=== PATIENT | female | born 1940 | race Caucasian/White ===

== ENCOUNTER 2017-01-23 12:05 | Emergency (ER) | payer MEDICARE ==
[~2017-01-23] VITALS: Wt 72.6 kg
[~2017-01-23 12:05] MED LIST: 'XANAX0.25 MG PO; ACETAMINOPHEN325 M2 PO; ASPIR-LOW81 MG PO; BENADRYL ALLERG25 M5 PO; CALCIUM 600600 M2 PO; CALCIUM-600600 MG PO; CARDIZEM CD180 MG PO; CARDIZEM CD240 MG PO; CEFTIN500 MG PO; CENTRUM SILVER1 TA1 PO; COLACE100 MG PO; CORDARONE200 MG PO; COUMADIN5 M2 PO; COUMADIN6 M2 PO; DETROL LA4 MG PO; DILTIAZEM HYDR180 M2 PO; DILTIAZEM240 M1 PO; DOXYCYCLINE100 MG PO; ELIQUIS; ELIQUIS5 M1 PO; ENABLEX15 MG PO; Eliquis PO; FISH OIL 1,2001 EAC1 PO; FISH OIL PO; FLOMAX0.4 MG PO; HYDROCODONE BIT1 T11 PO; KEFLEX 500 MG E2 CAP PO; LANOXIN0.125 MG PO; LANOXIN0.25 MG PO; LANOXIN250 MCG PO; LISINOPRIL5 MG PO; LOPRESSOR25 MG PO; LOSARTAN POTASS25 M1 PO; Lopressor25 MG PO; MACROBID100 M1 PO; MELOXICAM15 MG PO; METOPROLOL25 MG PO; MOTRIN600 MG PO; MULTAQ400 MG PO; NATURE'S BLEND F1 MG PO; PACERONE200 MG PO; PAROXETINE20 MG PO; PERCOCET 325 MG1 TA5 PO; PERCOCET 325 MG1 TA7 PO; POTASSIUM99 M4 PO; PYRIDIUM200 MG PO; SYNTHROID25 MCG PO; TOPROL XL50 M1 PO; TYLENOL W/CODEI1 TA7 PO; VESICARE5 MG PO; VITAMIN C500 MG PO; VITAMIN D32000 IU PO; VITAMIN D32000 UNIT PO; VITAMIN E400 I1 PO; VITAMIN E400 UNI2 PO; XARELTO10 MG PO; ZOFRAN ODT4 MG SL
[2017-01-23 13:26] LABS: INTERNATIONAL NORM RATIO 4.8 (2.0-3.5)
[2017-01-23 13:33] VITALS: BP 127/60
== END 2017-01-23 13:46 | disposition home or self-care (01) ==
LOC: ED 12:05
PROVIDERS: Emergency Medicine
DX: S40.022A Contusion of left upper arm, initial encounter (principal); R79.1 Abnormal coagulation profile; I48.2 Chronic atrial fibrillation; I12.9 Hypertensive chronic kidney disease with stage 1 through stage 4 chronic kidney disease, or unspecified chronic kidney disease; N18.3 Chronic kidney disease, stage 3 (moderate); Z95.0 Presence of cardiac pacemaker; Z87.442 Personal history of urinary calculi; Z98.890 Other specified postprocedural states; Z90.710 Acquired absence of both cervix and uterus; Z90.89 Acquired absence of other organs; Z79.01 Long term (current) use of anticoagulants; Z79.899 Other long term (current) drug therapy; W19.XXXA Unspecified fall, initial encounter; Y93.89 Activity, other specified; Y92.129 Unspecified place in nursing home as the place of occurrence of the external cause; Y99.9 Unspecified external cause status

== ENCOUNTER 2017-03-03 00:26 | Inpatient (IN) | payer MEDICARE ==
[2017-03-03] VITALS (7 sets, daily range): BP systolic 100–129; BP diastolic 61–72
[~2017-03-03] VITALS: Ht 162.6 cm; Wt 58.2 kg
--- NOTE | ~2017-03-03 | PR ---
[place], [place] PROGRESS NOTE NAME: SUZIE HERNANDES [facility] #: [id number] UNIT #: [id number] ROOM: 409 DOCTOR: MARIA FERNANDA MIKE MD BIRTHDATE: [birth year] DOS: 03/07/2017 SUBJECTIVE: The patient was seen at her bedside today for followup of her atrial arrhythmias and digoxin toxicity. She is a 76-year-old woman with a history of atrial fibrillation, tachybrady syndrome and a permanent DDD pacemaker. She presented to the hospital after a fall at her correction. She was found to be hypotensive and to have a supratherapeutic digoxin level of 3.22. She was hospitalized and hydrated. Her vital signs stabilized. She remained in an AV sequentially paced rhythm and her digoxin level normalized. The patient is pleasantly confused, but denies any symptoms at this time. Plans are being made for her to return to her extended care facility. PHYSICAL EXAMINATION: VITAL SIGNS: Today her pulse is 70 and regular, blood pressure is 130/76. She is afebrile. She weighs 58.2 kilograms with a body mass index of 22. NECK: Supple. She has no jugular distention. Carotids are full. LUNGS: Respirations are unlabored. Her chest is clear. HEART: Has a regular rhythm with a fourth heart sound. The PMI is not displaced. There are no obvious murmurs. ABDOMEN: Soft and normally active. EXTREMITIES: Showed no edema. There were no palpable cords or tenderness. IMPRESSION: 1. Hospitalization after a fall at her extended care facility. 2. Digoxin toxicity. 3. Dementia. 4. Acute renal failure, resolving. 5. History of conduction system disorder and sick sinus syndrome, treated with a DDD pacemaker. 6. Paroxysmal atrial fibrillation. PLAN: The patient appears to be clinically compensated at this time. The decision has been made that her fall risk places her at a great risk for further problems should she continue anticoagulation therapy. Anticoagulants have therefore been stopped and she is on aspirin only as an antiplatelet agent. Plans are being made for her to return to her extended care facility. At the time of this dictation, her medications are aspirin 81 mg daily, metoprolol succinate 50 mg q. 12 hours, Paxil 20 mg daily, losartan 25 mg daily, folic acid 1 mg daily, diltiazem 180 mg daily, levothyroxine 25 mcg daily, oxybutynin 5 mg q. 12 hours, tramadol 50 mg q.i.d. p.r.n., lorazepam 0.5 mg b.i.d. p.r.n., diphenhydramine 25 mg p.o. daily, pantoprazole 40 mg p.o. daily, temazepam 50 mg at bedtime p.r.n. We will remain available to see her if needed during her hospitalization. For now we will sign off. However, we thank the hospitalist service for asking our advice regarding her care. [place], [place] PROGRESS NOTE NAME: SUZIE HERNANDES [facility] UNIT #: [id number] ROOM: 409 DOCTOR: MARIA FERNANDA MIKE MD BIRTHDATE: [birth year] MARIA FERNANDA MIKE MD CM:PNTRANS [phone] MARIA FERNANDA MIKE MD 03/07/17 1539 interface
--- NOTE | ~2017-03-03 | PR ---
[place], [place] PROGRESS NOTE NAME: SUZIE HERNANDES [facility] #: [id number] UNIT #: [id number] ROOM: 409 DOCTOR: MARIA FERNANDA MIKE MD BIRTHDATE: [birth year] DOS: 03/05/2017 SUBJECTIVE: The patient was seen at her bedside today, 03/05/2017. She is a 76-year-old resident of a intermediate, who presented after falling, with an elevated digoxin level at 3.22. The digoxin level has been monitored and has fallen back to therapeutic ranges. She also did have an acute rise in her creatinine, but this has fallen from an admission value of 1.21 to 0.67. The patient is no longer on the monitor. She tells me that she feels well. She denies lightheadedness or syncope. She denies any chest pain. PHYSICAL EXAMINATION: VITAL SIGNS: Today her pulse is 100 and regular, blood pressure is 115/84. She is afebrile. She weighs 58.2 kg and has a body mass index of 22. NECK: Supple. She has no jugular distention. Carotids are full. LUNGS: Respirations are unlabored. Her chest is clear. HEART: Has a regular rhythm. No murmurs, rubs or gallops are present. ABDOMEN: Soft and normally active. EXTREMITIES: Showed no edema. PLAN: The decision has been made to stop anticoagulants since she remains a fall risk. She is no longer on antiarrhythmic medications either. She will be maintained on metoprolol for rate control and aspirin as an antiplatelet agent. No other cardiac workup is planned at this time. We thank the hospitalist physicians for asking our advice regarding her care. MARIA FERNANDA MIKE MD CM:PNTRANS [phone] MARIA FERNANDA MIKE MD 03/05/[id number] interface
[~2017-03-03 00:26] MED LIST changes: -CORDARONE200 MG PO
[2017-03-03 01:01] LABS: BASO % 0.4 % (0.0-1.0); EOS # 0.2 10*3/uL (0.0-0.4); EOS % 2.6 % (1.0-4.0); HEMATOCRIT 40.6 % (37.0-47.0); HEMOGLOBIN 13.7 g/dl (12.0-16.0); LYMPH # 2.2 10*3/uL (1.3-4.4); MEAN CORPUSCULAR HGB 30.7 pg (27.0-31.0); MEAN CORPUSCULAR HGB CONC 33.7 g/dl (33.0-37.0); MEAN PLATELET VOLUME 9.5 fl (9.6-12.3); MONO # 0.8 10*3/uL (0.1-1.0); MONO % 10.8 % (3.0-9.0); NEUT # 3.8 10*3/uL (2.3-7.9); NEUT % 54.8 % (47.0-73.0); PLATELET COUNT AUTOMATED 195 10*3/uL (130-400); RED BLOOD COUNT 4.46 10*6/uL (4.10-5.10); RED CELL DISTRI WIDTH 15.9 % (0-14.5); WHITE BLOOD COUNT 6.9 10*3/uL (4.8-10.8)
--- NOTE | 2017-03-03 01:03 | NUR ---
PT TO XRAY AT THIS TIME.---SANIYA GRIMALDO RN
[2017-03-03 01:14] LABS: INTERNATIONAL NORM RATIO 1.2 (2.0-3.5)
[2017-03-03 01:17] LABS: CREATININE 1.21 mg/dL (0.55-1.02); POTASSIUM 3.9 mmol/L (3.5-5.1); TOTAL PROTEIN 6.3 gm/dL (6.4-8.2)
[2017-03-03 01:18] LABS: TROPONIN I 0.034 ng/ml (<0.045)
[2017-03-03 01:52] LABS: DIGOXIN 3.22 ng/ml (0.8-2.0)
--- NOTE | 2017-03-03 01:53 | NUR ---
PATIENT HAS CRITICAL DIGOXIN 3.22. DR. MONTAÑO NOTIFIED.
[2017-03-03 01:54] LABS: BILIRUBIN 1+ (NEGATIVE); BLOOD NEGATIVE (NEGATIVE); CLARITY SL CLOUDY (CLEAR); COLOR YELLOW (YELLOW); GLUCOSE NEGATIVE (NEGATIVE); KETONE TRACE (NEGATIVE); LEUKO ESTERASE 1+ (NEGATIVE); NITRITE NEGATIVE (NEGATIVE); SPECIFIC GRAVITY 1.025 (1.005-1.030)
[2017-03-03 02:09] LABS: BACTERIA 2+
[2017-03-03 02:10] LABS: WBC 16-20 wbc/hpf (0-5); YEAST TRACE
[2017-03-03] MEDS ORDERED: ASPIRIN ADULT L81 M1 PO (04:23)
[2017-03-03] MEDS ORDERED: TRAMADOL HCL50 MG PO (04:28)
[2017-03-03] MEDS ORDERED: ATIVAN0.5 MG PO (04:28)
[2017-03-03 04:46] LABS: BASO % 0.6 % (0.0-1.0); EOS # 0.2 10*3/uL (0.0-0.4); EOS % 2.8 % (1.0-4.0); HEMATOCRIT 39.3 % (37.0-47.0); HEMOGLOBIN 13.2 g/dl (12.0-16.0); LYMPH # 2.1 10*3/uL (1.3-4.4); LYMPH % 29.3 % (27.0-41.0); MEAN CELL VOLUME 90.8 fl (81.0-99.0); MEAN CORPUSCULAR HGB 30.5 pg (27.0-31.0); MEAN CORPUSCULAR HGB CONC 33.6 g/dl (33.0-37.0); MEAN PLATELET VOLUME 9.7 fl (9.6-12.3); MONO # 0.8 10*3/uL (0.1-1.0); MONO % 10.6 % (3.0-9.0); NEUT # 4.1 10*3/uL (2.3-7.9); NEUT % 56.3 % (47.0-73.0); PLATELET COUNT AUTOMATED 188 10*3/uL (130-400); RED BLOOD COUNT 4.33 10*6/uL (4.10-5.10); RED CELL DISTRI WIDTH 15.9 % (0-14.5); WHITE BLOOD COUNT 7.2 10*3/uL (4.8-10.8)
[2017-03-03 04:57] LABS: CREATININE 1.09 mg/dL (0.55-1.02); MAGNESIUM 1.7 mg/dL (1.5-2.1); POTASSIUM 3.6 mmol/L (3.5-5.1)
[2017-03-03 05:02] LABS: PHOSPHOROUS 2.7 mg/dL (2.5-4.9)
[2017-03-03 05:08] LABS: THYROID STIM HORMONE (HS) 1.36 uIU/ml (0.358-4.75)
--- NOTE | 2017-03-03 05:35 | NUR ---
POISON CONTROL CALLED TO CHECK DIG LEVEL AND TO MAKE SURE PATIENT IS ON FLUIDS AND MONITOR.
[2017-03-03 06:08] LABS: VITAMIN D, 25-HYDROXY 45.8 ng/mL (30-100)
--- NOTE | 2017-03-03 08:20 | NUR ---
DR CURREI MADE AWARE OF PT'S CRITICAL DIG LEVEL OF 3.21
--- NOTE | 2017-03-03 10:44 | NUR ---
PT ASSISTED UP IN TO RECLINER CHAIR. PT SHUFFLES HER FEET WHEN WALKING.
--- NOTE | 2017-03-03 10:58 | NUR ---
PHYSICAL THERAPY PAtient eating breakfast at this time. Thank you for this referral. Cleopatra Quinones,PT
--- NOTE | 2017-03-03 11:45 | NUR ---
PHYSICAL THERAPY Patient evaluated in ICCU, full evaluation to follow. Continue with PT as per plan of care with fall, confused and acute debility precautions. MAy require SNF prior to return to (A) living to increased safety and functional mobility. PAtient is moderate complexity via chart review, tests and evalaution: 33424. Thank you for this referral. Cleopatra ji,PT
--- NOTE | 2017-03-03 14:42 | NUR ---
PT MEDICATED WITH ATIVAN FOR ANXIETY AND ULTRAM FOR GENERALIZED BODY ACHES AFTER BEING ASSISTED BACK IN TO BED FROM RECLINER CHAIR.
--- NOTE | 2017-03-03 15:38 | NUR ---
PT RESTING WITH EYES CLOSED SINCE BEING MEDICATED WITH ATIVAN AND ULTRAM FOR ANXIETY AND BODY ACHES.
--- NOTE | 2017-03-03 17:06 | NUR ---
DR SYED IN TO SEE PT.
--- NOTE | 2017-03-03 20:44 | NUR ---
24 HR chart check completed.
--- NOTE | 2017-03-03 21:08 | NUR ---
PRN RESTORIL GIVEN FOR INSOMNIA. WILL MONITOR FOR EFFECTIVENESS.
--- NOTE | 2017-03-03 22:00 | NUR ---
PATIENT ASLEEP. RESTORIL EFFECTIVE.
[2017-03-04] VITALS: BP 120/80
[2017-03-04 04:24] VITALS: BP 158/87
--- NOTE | 2017-03-04 05:29 | NUR ---
ULTRAM GIVEN FOR C/O PAIN. UNABLE TO RATE PAIN ON PAIN SCALE. RUBBING RIGHT HIP. GRIMACING WITH TURNING. MEDICATED WITH PRN ATIVAN FOR ANIXETY/ RESTLESSNESS. PATIENT HAS MADE NUMEROUS ATTEMPTS TO GET OUT OF BED. PULLING AT GOWN, MONITOR LEADS AND IV SITE. WILL MONITOR FOR EFFECTIVENESS.
--- NOTE | 2017-03-04 06:29 | NUR ---
PATIENT ASLEEP. NO SIGNS OF ANXIETY OR PAIN. ULTRAM AND ATIVAN EFFECTIVE.
[2017-03-04 07:07] LABS: HEPATITIS B SURFACE AG Negative (Negative); HEPATITIS C VIRUS ANTIBODY <0.1 s/co (0.0-0.9)
[2017-03-04 07:13] LABS: BASO % 0.4 % (0.0-1.0); EOS # 0.2 10*3/uL (0.0-0.4); EOS % 2.4 % (1.0-4.0); HEMATOCRIT 35.6 % (37.0-47.0); HEMOGLOBIN 11.8 g/dl (12.0-16.0); LYMPH # 1.4 10*3/uL (1.3-4.4); LYMPH % 18.5 % (27.0-41.0); MEAN CELL VOLUME 90.6 fl (81.0-99.0); MEAN CORPUSCULAR HGB CONC 33.1 g/dl (33.0-37.0); MEAN PLATELET VOLUME 10.2 fl (9.6-12.3); MONO # 0.8 10*3/uL (0.1-1.0); MONO % 10.9 % (3.0-9.0); NEUT # 5.1 10*3/uL (2.3-7.9); NEUT % 67.4 % (47.0-73.0); PLATELET COUNT AUTOMATED 179 10*3/uL (130-400); RED BLOOD COUNT 3.93 10*6/uL (4.10-5.10); RED CELL DISTRI WIDTH 15.7 % (0-14.5); WHITE BLOOD COUNT 7.5 10*3/uL (4.8-10.8)
[2017-03-04] MEDS ORDERED: MEMANTINE HCL10 MG PO (07:22)
[2017-03-04] MEDS ORDERED: MEGACE 40400 MG/10 PO (07:33)
--- NOTE | 2017-03-04 07:48 | NUR ---
Shift chart check completed.24 HR chart check completed.
[2017-03-04 07:51] LABS: ALBUMIN 2.5 gm/dl (3.1-4.5); ALKALINE PHOSPHATASE 77 U/L (45-117); BUN 12 mg/dl (7-24); CHLORIDE 111 mmol/L (98-107); CREATININE 0.76 mg/dL (0.55-1.02); POTASSIUM 3.6 mmol/L (3.5-5.1); SGOT/AST 80 IU/L (3-35); SGPT/ALT 111 U/L (12-78); SODIUM 143 mmol/L (136-145); TOTAL PROTEIN 5.4 gm/dL (6.4-8.2)
--- NOTE | 2017-03-04 08:00 | NUR ---
BUSINESS CASE ANALYST VS. SLEEPING. COMES FROM [facility]. MAY NEEDS SNF PLACEMENT. WILL FOLLOW.
--- NOTE | 2017-03-04 09:35 | NUR ---
PHYSICAL THERAPY Mago seen for her physical therapy session and just would not arouse, nursing ask just not to see her right now. LORENA PIERRE FACILITIES MAINTENANCE MANAGER.
--- NOTE | 2017-03-04 11:51 | NUR ---
PT AWAKE AND UP TO BSC TO VOID 300ML DRK AGUSTIN, FOUL SMELLING URINE. SINCE BEING AWAKE SHE IS IN CONSTANT MOTION. LINENS OFF, LINENS ON. ATTEMPTED TO GIVE HER WASHCLOTHS TO FOLD BUT SHE DOESN'T SEEM TO KNOW WHAT TO DO WITH THEM. DR SYED HAS VISITED. DR BELL ET AL IN TO VISIT.
[2017-03-04 12:00] VITALS: BP 114/60
--- NOTE | 2017-03-04 12:07 | NUR ---
Patient is from [place]. Called and spoke with nurse Ramirez. patient resides in their locked memory unit. They would like to see if patient clears up from digoxin toxicity and UTI and would also like physical therapy eval/notes prior to returning. If patient clears up but will need continued therapy, patient can receive skilled therapy there with a prescription stated patient needs PT 5 days per week. Will follow
--- NOTE | 2017-03-04 12:18 | NUR ---
DR SYED HAS VISITED. MEDS WERE REVIEWED WITH HIM.
--- NOTE | 2017-03-04 13:16 | NUR ---
PHYSICAL THERAPY Mago seen this PM and was supine talking. With much verbal cueing for everything. Transfer supine/sit MOD A X 1, sitting balance once up MIN A X `1 X 6 min. Sit/stand and standing balance X 3, with MOD A X 1, verbal cues for Pt's standingbalance, head up and stand. We did side step X 2 right and left with sitting rest as needed. Pt back supine MOD A X 1. LORENA PIERRE GORE STITCHER.
--- NOTE | 2017-03-04 14:19 | NUR ---
PHYSICAL THERAPY CO-SIGN I approve of the Phyical Therapy notes written above. HAILEY ALEMAN PT
--- NOTE | 2017-03-04 14:52 | NUR ---
WE ATTEMPTED TO FEED PT HER LUNCH EARLIER. SHE JUST TOOK A FEW BITES OF EACH ITEM. CURRENTLY SHE IS SLEEPING EASILY. NO DYSRHYTHMIAS OR RESPIRATORY DISTRESS.
--- NOTE | 2017-03-04 15:51 | NUR ---
ULTRAM FOR RT HIP PAIN.
[2017-03-04 16:00] VITALS: BP 122/78
--- NOTE | 2017-03-04 16:08 | NUR ---
UP IN RECLINER CHAIR AT THE BEDSIDE. SHE IS CONTINUALLY PULLING HER BLANKET OFF AND PUTTING HER BLANKET ON, PULLING HER SOCKS UP AND PUSHING THEM DOWN. SHE GIGGLES WHEN QUESTIONED. DOES NOT FOLLOW COMMANDS COMPLETELY.
--- NOTE | 2017-03-04 16:48 | NUR ---
FOOD PREPARED AND PT IN CHAIR. DOESN'T HOLD SPOON WELL, PUTS HER HANDS IN THE SPAGHETTI AND GIGGLES.
--- NOTE | 2017-03-04 17:35 | NUR ---
SEEMS COMFORTABLE SINCE THE ULTRAM. VERY POOR INTAKE. I HAVE ATTEMPTED TO FEED HER BUT SHE RESISTS ME.
--- NOTE | 2017-03-04 19:03 | NUR ---
24 HR chart check completed.
[2017-03-04 20:00] VITALS: BP 122/74
--- NOTE | 2017-03-04 21:05 | NUR ---
RESTORIL GIVEN FOR INSOMNIA.
--- NOTE | 2017-03-04 22:00 | NUR ---
PATIENT ASLEEP. RESTORIL EFFECTIVE.
[2017-03-05] VITALS: BP 127/70
[2017-03-05 04:00] VITALS: BP 127/70
[2017-03-05 05:57] LABS: BASO % 0.6 % (0.0-1.0); EOS # 0.2 10*3/uL (0.0-0.4); EOS % 2.8 % (1.0-4.0); HEMATOCRIT 34.9 % (37.0-47.0); HEMOGLOBIN 11.6 g/dl (12.0-16.0); LYMPH # 1.5 10*3/uL (1.3-4.4); LYMPH % 22.6 % (27.0-41.0); MEAN CELL VOLUME 90.9 fl (81.0-99.0); MEAN CORPUSCULAR HGB 30.2 pg (27.0-31.0); MEAN CORPUSCULAR HGB CONC 33.2 g/dl (33.0-37.0); MEAN PLATELET VOLUME 10.1 fl (9.6-12.3); MONO # 0.7 10*3/uL (0.1-1.0); MONO % 10.6 % (3.0-9.0); NEUT # 4.1 10*3/uL (2.3-7.9); NEUT % 63.2 % (47.0-73.0); PLATELET COUNT AUTOMATED 185 10*3/uL (130-400); RED BLOOD COUNT 3.84 10*6/uL (4.10-5.10); RED CELL DISTRI WIDTH 15.8 % (0-14.5); WHITE BLOOD COUNT 6.5 10*3/uL (4.8-10.8)
[2017-03-05 06:32] LABS: ALBUMIN 2.5 gm/dl (3.1-4.5); ALKALINE PHOSPHATASE 82 U/L (45-117); BUN 9 mg/dl (7-24); CHLORIDE 113 mmol/L (98-107); CREATININE 0.67 mg/dL (0.55-1.02); POTASSIUM 3.6 mmol/L (3.5-5.1); SGOT/AST 89 IU/L (3-35); SGPT/ALT 120 U/L (12-78); SODIUM 144 mmol/L (136-145); TOTAL PROTEIN 5.4 gm/dL (6.4-8.2)
[2017-03-05 08:00] VITALS: BP 120/63
--- NOTE | 2017-03-05 08:00 | NUR ---
Awake and alert, disoriented to place and time. conversing abt. playing cards stating she wasn't allowed to play because she didn't have any jewlery on. AM glu 64 OJ w/ 2 sugars given and breakfast ordered. Assisted up to BSC x 2 this AM w/ 2 assists. for adequate amt enrike urine each time. Unsteady to stand. shuffling gait and backward motion.
--- NOTE | 2017-03-05 10:14 | NUR ---
Full feed for breakfast. Requested coffee be left at bedside w/i 15 min. coffee spilled in bed. cool at the time no reddness of skin noted. Full linen change and up to chair. Unsteady to stand.
--- NOTE | 2017-03-05 11:06 | NUR ---
IV to RAN reddened dc'd and re-started to RA. Dr. Sears in to evaulate Orders recieved. Flores Torres in to visit. Update given
--- NOTE | 2017-03-05 11:45 | NUR ---
Per attending staff. Removed body alarm and up in room . Inc large amt urine, assisted back into bed .
[2017-03-05 12:00] VITALS: BP 102/66
--- NOTE | 2017-03-05 14:27 | NUR ---
Transferred to [facility] via w/c.
[2017-03-05 16:00] VITALS: BP 115/84
[2017-03-05 20:00] VITALS: BP 130/87
[2017-03-06] VITALS: BP 157/83
[2017-03-06 06:05] LABS: BASO % 0.4 % (0.0-1.0); EOS # 0.2 10*3/uL (0.0-0.4); EOS % 2.9 % (1.0-4.0); LYMPH # 1.6 10*3/uL (1.3-4.4); LYMPH % 22.4 % (27.0-41.0); MEAN CELL VOLUME 91.1 fl (81.0-99.0); MEAN CORPUSCULAR HGB 30.4 pg (27.0-31.0); MEAN CORPUSCULAR HGB CONC 33.3 g/dl (33.0-37.0); MEAN PLATELET VOLUME 10.6 fl (9.6-12.3); MONO # 0.8 10*3/uL (0.1-1.0); MONO % 11.3 % (3.0-9.0); NEUT # 4.6 10*3/uL (2.3-7.9); NEUT % 62.6 % (47.0-73.0); PLATELET COUNT AUTOMATED 210 10*3/uL (130-400); RED BLOOD COUNT 3.95 10*6/uL (4.10-5.10); RED CELL DISTRI WIDTH 15.7 % (0-14.5); WHITE BLOOD COUNT 7.3 10*3/uL (4.8-10.8)
[2017-03-06 06:37] LABS: CHLORIDE 110 mmol/L (98-107); POTASSIUM 4.2 mmol/L (3.5-5.1); SODIUM 144 mmol/L (136-145)
[2017-03-06 06:41] LABS: BUN 8 mg/dl (7-24); CREATININE 0.71 mg/dL (0.55-1.02)
[2017-03-06 12:00] VITALS: BP 154/73
--- NOTE | 2017-03-06 15:00 | NUR ---
PATIENT ATTEMPTING TO GET OUT OF BED. PLEASANTLY CONFUSED AT THIS TIME WITH BODY ALARM INTACT. MOVED TO GARY CHAIR AT THIS TIME.
[2017-03-06 16:00] VITALS: BP 126/64
[2017-03-06 20:00] VITALS: BP 129/66
--- NOTE | 2017-03-06 22:44 | NUR ---
PT GIVEN ATIVAN 0.5 MG TAB PO FOR S/S OF ANXIETY. WILL MONITOR FOR EFFECTIVENESS. CALL LIGHT IN REACH.
--- NOTE | 2017-03-06 23:44 | NUR ---
ATIVAN EFFECTIVE. PT NOW RESTING PEACEFULLY IN BED, CALL LIGHT IN REACH.
[2017-03-07] VITALS: BP 127/75
--- NOTE | 2017-03-07 04:00 | NUR ---
PT RESTING PEACEFULLY IN BED AT THIS TIME. NO S/S OF DISTRESS. RESPIRATIONS EASY AND UNLABORED, CALL LIGHT IN REACH.
--- NOTE | 2017-03-07 04:18 | NUR ---
24 HR chart check completed.
[2017-03-07 08:00] VITALS: BP 130/76
--- NOTE | 2017-03-07 09:35 | NUR ---
PHYSICAL THERAPY Mago was seen this AM 1:1 for her therapy session and doing much better then last tuesday treatment. Pt needing much verbal cueing for everything, and is confused. Transfer supine/sit, MOD A X 1, sitting balance once up CG X 1, X 4 min, no LOB. Followed by sit/stand and standing balance X 3, with MOD SADDLE STITCHING MACHINE OPERATOR X 1, and sitting rest after each stand. Then gait 45' X 1, MOD SADDLE STITCHING MACHINE OPERATOR X 1, and needing cueing for balance, gait and turns or she would get lost. Pt back supine in bed call light and bed alarm on. LORENA PIERRE COMPENSATION ANALYST.
[2017-03-07 11:59] VITALS: BP 132/68
--- NOTE | 2017-03-07 12:37 | NUR ---
Called [facility] after faxing updates to make sure patient is ok to return. Nurses are unavailable at this time, left message to return call
--- NOTE | 2017-03-07 13:39 | NUR ---
Spoke with Ashley, the nurse at [facility] who reviewed patients clincals. She stated patient is ok to return, but will need a prescription written for physical therapy 5 days a week. Will notify Mayra, nurse director of hospitalists.
[2017-03-07] MEDS ORDERED: TOPROL XL50 M1 PO (13:56)
[2017-03-07] MEDS ORDERED: TRAMADOL HCL50 MG PO (13:56)
[2017-03-07] MEDS ORDERED: ATIVAN0.5 MG PO (13:56)
--- NOTE | 2017-03-07 15:06 | NUR ---
Patient is being discharged back to [facility] unit. Transportation scheduled for 3:30 with [facility]. [facility] and nursing notified.
--- NOTE | 2017-03-07 15:21 | NUR ---
Patient is not being accepted back by [facility] at this time. Nurse at [facility], Ashley, stated on the nurse to nurse it was reported that the patient doesn't know what to do with her food and forgets or has trouble eating. Also stated report said patient is having difficulty transfering to the [facility]. I questioned Ashley in the fact that this patient is currently in their [facility] unit and according to the physical therapy note she has walked 45 feet today. Ashley stated she feels at this time the patient should go to a skilled facility for short term rehab prior to returning. Called and cancelled ambulance. notified [facility] to cancel discharge. Will follow up tomorrow on skilled facility rehab
--- NOTE | 2017-03-07 15:21 | NUR ---
[facility]
[2017-03-07 16:00] VITALS: BP 111/55
--- NOTE | 2017-03-07 16:20 | NUR ---
Occupational Therapy evaluation completed this date on 4 with full eval to follow. Precautions include fall risk, moderate complexity level 22661, poor memory, orientation and patient requires simple one step repetitive commands in ADLs. She is able to feed self w/ moderate assist w/ above commands. Recommend OT per POC and return to familiar memory care unit or SNF to return to PLOF. Thank you for this referral. Nara Pastrana OTR/L
[2017-03-07 20:00] VITALS: BP 111/55; BP 130/72
--- NOTE | 2017-03-07 20:15 | NUR ---
PT. RESTING IN BED. HEP LOCK OUT PER RN. LUNGS DIMINISHED BUT CLEAR BILAT, PULSE OX 96% ON RA. PT. REMAINS CONFUSED AND DISORIENTED. ABDOMEN SOFT, NONDSITENDED AND NORMO. NO PERIPHERAL EDEMA NOTED. PT. HAS BODY ALARM ON WHILE UP IN CHAIR. HAIM HAYES RN
--- NOTE | 2017-03-07 22:02 | NUR ---
PT. GIVEN ATIVAN AT 2126 FOR RESTLESSNESS.
[2017-03-08] VITALS: BP 102/57
--- NOTE | 2017-03-08 00:16 | NUR ---
PT. SLEEPING, ATIVAN GIVEN ORDERED AT 2126 EFFECTIVE.
[2017-03-08 08:00] VITALS: BP 124/68
--- NOTE | 2017-03-08 09:21 | NUR ---
PHYSICAL THERAPY Mago was seen this AM 1:1 for her therapy session and improving with her gait, balance and bilateral LE strength. Transfer supine/sit MOD A X 1, sitting balance once up supervision X 1, X 5 min with no LOB. Sit/stand and standing balance MOD A X 1, X 3. Then gait working on gait balance, turns, stop/start gait with much cueing 70' X 2, wit one sitting rest. Pt up in her bedside chair, body alarm on tray in front, pt is confused. LORENA PIERRE TEXTILE MACHINE OPERATOR.
[2017-03-08 09:40] VITALS: BP 124/68
--- NOTE | 2017-03-08 10:14 | NUR ---
PATIENT SEEN 1:1 OT THIS DATE 37 MINUTES. PATIENT IDENTIFIED BY NAME AND DATE OF . PATIENT COMPLETED FEEDING CGA AFTER SHEN AND VERBAL/TACTILE INSTRUCTION REQUIRED THIS DATE. PATIENT SEATED IN RECLINER WITH TRAY POSITIONED FOR INCREASE POSTURE AND INDEPENDENCE. PATIENT REQUIRED VERBAL INSTRUCTION TO INITITATE FEEDING AND PRESENTED WITH TREMORS RIGHT HAND AND LOOSE MAILROOM PERSONNEL OF UTENSIL WITH TACTILE CUES REQUIRED INCREASE GRASP/POSITIONING OF UTENSIL. PATIENT WOULD BENEFIT FROM BUILT UP HANDLE FOR INCREASE EASE GRASP. PATIENT DEMONSTRATED GOOD INITIATION REACHING FOR DRINKS WITH NO SPILLS NOTED. PATIENT REQUIRED INCREASE TIME TO COMPLETE AND VERBAL INSTRUCITON MAINTAIN ATTENTION TO TASK. VICENTA LOWERY
[2017-03-08 11:24] VITALS: BP 90/46
--- NOTE | 2017-03-08 11:24 | NUR ---
NOTIFIED (ON FLOOR) THAT PATIENT'S BP WAS LOW 90/46. ORDER OBTAINED TO RECHECK IN 1 HOUR.
[2017-03-08 12:00] VITALS: BP 86/50
[2017-03-08 12:23] VITALS: BP 100/50
--- NOTE | 2017-03-08 14:54 | NUR ---
Discharge instructions reviewed with patient/family. Patient receptive and verbalizes understanding. Follow-up care arranged. Written instructions given to patient/family. PATIENT PICKED UP BY [facility] AND TAKEN TO [facility]. REPORT GIVEN TO FAMILY. MANGO THEODORE
--- NOTE | 2017-03-08 15:58 | NUR ---
PHYSICAL THERAPY CO-SIGN I approve of the Phyical Therapy notes written above. HAILEY ALEMAN PT
--- NOTE | 2017-03-09 07:37 | NUR ---
OCCUPATIONAL THERAPY CO-SIGN I approve of the Occupational Therapy notes written above. MARTHA BARNES OTR/Louie
== END 2017-03-08 14:54 | disposition home or self-care (01) | DRG 917 ==
LOC: ED 00:26 → EDHOLD 02:42 → ICCU 02:42 → 4E 03-05 13:39
PROVIDERS: Internal Medicine; Student in an Organized Health Care Education/Training Program; ADMIT Internal Medicine
DX: T46.0X1A Poisoning by cardiac-stimulant glycosides and drugs of similar action, accidental (unintentional), initial encounter (principal); G93.41 Metabolic encephalopathy; N17.0 Acute kidney failure with tubular necrosis; E43 Unspecified severe protein-calorie malnutrition; I95.9 Hypotension, unspecified; G30.9 Alzheimer's disease, unspecified; I48.0 Paroxysmal atrial fibrillation; I49.5 Sick sinus syndrome; N18.3 Chronic kidney disease, stage 3 (moderate); F02.80 Dementia in other diseases classified elsewhere, unspecified severity, without behavioral disturbance, psychotic disturbance, mood disturbance, and anxiety; N39.0 Urinary tract infection, site not specified; R78.89 Finding of other specified substances, not normally found in blood; R74.0 Nonspecific elevation of levels of transaminase and lactic acid dehydrogenase [LDH]; S01.01XA Laceration without foreign body of scalp, initial encounter; M43.12 Spondylolisthesis, cervical region; I12.9 Hypertensive chronic kidney disease with stage 1 through stage 4 chronic kidney disease, or unspecified chronic kidney disease; F41.1 Generalized anxiety disorder; M85.89 Other specified disorders of bone density and structure, multiple sites; W18.39XA Other fall on same level, initial encounter; R53.81 Other malaise; Z51.5 Encounter for palliative care; Z66 Do not resuscitate; Z87.442 Personal history of urinary calculi; Z95.0 Presence of cardiac pacemaker; Z98.1 Arthrodesis status; Z90.710 Acquired absence of both cervix and uterus; Z90.89 Acquired absence of other organs; Z81.1 Family history of alcohol abuse and dependence; Z83.6 Family history of other diseases of the respiratory system; Z82.49 Family history of ischemic heart disease and other diseases of the circulatory system; Z88.8 Allergy status to other drugs, medicaments and biological substances; Z91.048 Other nonmedicinal substance allergy status; Z79.899 Other long term (current) drug therapy; Z79.82 Long term (current) use of aspirin; Y92.89 Other specified places as the place of occurrence of the external cause; Y93.89 Activity, other specified; Y99.8 Other external cause status; Z68.22 Body mass index [BMI] 22.0-22.9, adult

== ENCOUNTER 2017-03-29 09:19 | Emergency (ER) | payer MEDICARE ==
[~2017-03-29 09:19] MED LIST changes: +ASPIRIN ADULT L81 M1 PO; +ATIVAN0.5 MG PO; +MEGACE 40400 MG/10 PO; +MEMANTINE HCL10 MG PO; +TRAMADOL HCL50 MG PO
[2017-03-29 09:41] LABS: BASO % 0.4 % (0.0-1.0); EOS # 0.3 10*3/uL (0.0-0.4); EOS % 3.6 % (1.0-4.0); HEMATOCRIT 39.3 % (37.0-47.0); HEMOGLOBIN 13.2 g/dl (12.0-16.0); LYMPH # 2.2 10*3/uL (1.3-4.4); LYMPH % 28.8 % (27.0-41.0); MEAN CELL VOLUME 90.1 fl (81.0-99.0); MEAN CORPUSCULAR HGB 30.3 pg (27.0-31.0); MEAN CORPUSCULAR HGB CONC 33.6 g/dl (33.0-37.0); MEAN PLATELET VOLUME 9.6 fl (9.6-12.3); MONO # 0.8 10*3/uL (0.1-1.0); NEUT # 4.3 10*3/uL (2.3-7.9); NEUT % 56.8 % (47.0-73.0); PLATELET COUNT AUTOMATED 236 10*3/uL (130-400); RED BLOOD COUNT 4.36 10*6/uL (4.10-5.10); WHITE BLOOD COUNT 7.6 10*3/uL (4.8-10.8)
[2017-03-29 09:47] LABS: BILIRUBIN NEGATIVE (NEGATIVE); BLOOD NEGATIVE (NEGATIVE); CLARITY CLEAR (CLEAR); COLOR YELLOW (YELLOW); GLUCOSE NEGATIVE (NEGATIVE); KETONE NEGATIVE (NEGATIVE); LEUKO ESTERASE NEGATIVE (NEGATIVE); NITRITE NEGATIVE (NEGATIVE); PH 5.5 (5.0-9.0); SPECIFIC GRAVITY <= 1.005 (1.005-1.030); UROBILINOGEN 0.2 E.U./dl (0.2-1.0)
[2017-03-29 09:50] LABS: ACT PARTIAL THROMBO TIME 24.3 SECONDS (20.8-31.5); INTERNATIONAL NORM RATIO 1.2 (2.0-3.5)
[2017-03-29 09:55] LABS: URINE AMPHETAMINES < 1000 (1000ng/ml); URINE BARBITURATES < 200 (200ng/ml); URINE BENZODIAZEPINES < 200 (200ng/ml); URINE CANNABINOIDS (THC) < 50 (50ng/ml); URINE COCAINE < 300 (300ng/ml); URINE METHADONE < 300 (300ng/ml); URINE OPIATES < 300 (300ng/ml); URINE PHENCYCLIDINE < 25 (25ng/ml)
[2017-03-29 09:57] LABS: ALBUMIN 2.8 gm/dl (3.1-4.5); ALKALINE PHOSPHATASE 83 U/L (45-117); BUN 17 mg/dl (7-24); CHLORIDE 114 mmol/L (98-107); CREATININE 1.23 mg/dL (0.55-1.02); POTASSIUM 3.7 mmol/L (3.5-5.1); SGOT/AST 64 IU/L (3-35); SGPT/ALT 87 U/L (12-78); SODIUM 145 mmol/L (136-145); TOTAL PROTEIN 6.2 gm/dL (6.4-8.2)
[2017-03-29 09:58] LABS: TROPONIN I 0.019 ng/ml (<0.045)
[2017-03-29 09:58] LABS: EPITHELIAL CELLS 0-2; RBC 0-2 rbc/hpf (0-2)
[2017-03-29 10:06] LABS: ACETAMINOPHEN (TYLENOL) < 2.0 ug/ml (10-30); ETHYL ALCOHOL < 3.0 mg/dl (<3)
[2017-03-29 10:07] VITALS: BP 130/72
[2017-03-29] MEDS ORDERED: MEGACE 40400 MG/10 PO (13:16)
== END 2017-03-29 13:49 | disposition admitted as inpatient to this hospital (09) ==
LOC: ED 09:19
PROVIDERS: Student in an Organized Health Care Education/Training Program
DX: R41.82 Altered mental status, unspecified (principal); T43.025A Adverse effect of tetracyclic antidepressants, initial encounter; F03.90 Unspecified dementia, unspecified severity, without behavioral disturbance, psychotic disturbance, mood disturbance, and anxiety; I12.9 Hypertensive chronic kidney disease with stage 1 through stage 4 chronic kidney disease, or unspecified chronic kidney disease; N18.3 Chronic kidney disease, stage 3 (moderate); I48.2 Chronic atrial fibrillation; Z90.89 Acquired absence of other organs; Z87.442 Personal history of urinary calculi; Z98.890 Other specified postprocedural states; Z90.710 Acquired absence of both cervix and uterus; Z79.899 Other long term (current) drug therapy; Z79.82 Long term (current) use of aspirin; Z88.6 Allergy status to analgesic agent; Z88.8 Allergy status to other drugs, medicaments and biological substances; Y92.9 Unspecified place or not applicable

== ENCOUNTER 2017-03-29 13:03 | Inpatient (IN) | payer MEDICARE ==
[~2017-03-29] VITALS: Ht 165.1 cm; Wt 63.5 kg
--- NOTE | ~2017-03-29 | PR ---
[place], [place] PROGRESS NOTE NAME: [id number] #: [id number] ROOM: 315 DOCTOR: RICK CHAN MD BIRTHDATE: [birth year] DOS: 04/04/2017 CHIEF COMPLAINT: "Oh good morning, thank you for visiting." SUMMARY OF THE VISIT: The patient was interviewed as she sat in a Radhika chair reading a magazine. She was awaiting her breakfast. I later did bring her breakfast to her and she thanked me profusely for assisting her. She was bright and pleasant and offered no complaints. She does remain grossly confused, stating that she spent the weekend with her family and that she was happy to do so. Nurses report that she remains in general pleasantly confused. She is tolerating the current psychotropic regimen well. MENTAL STATUS: She is alert and oriented to person, uncertain to place, not time. Mood does seem to be fairly euthymic. Affect appropriate. There are no symptoms of faisal or hypomania. There are no overt auditory or visual hallucinations. No delusions, no paranoia. Short term memory is exceedingly poor. PLAN: I will increase her Namenda from 10 mg a day to 15 mg a day, ultimately targeting a dose of 20 mg a day to maximize potential benefits, maintain Exelon patch at 13.3, maintain Remeron at 22.5. We will renew Ativan in case she requires p.r.n. intervention. Engage in individual and seymour milieu activity, returning to [facility] when psychiatrically stable. RICK CHAN MD CM:PNTRANS [phone] RICK CHAN MD 04/04/17 0801 interface
--- NOTE | ~2017-03-29 | PR ---
[place], [place] PROGRESS NOTE NAME: SUZIE HERNANDES [facility] #: [id number] UNIT #: [id number] ROOM: 315 DOCTOR: Sherin SHIN,JONATHAN BIRTHDATE: [birth year] DOS: 04/03/2017 SUBJECTIVE: The patient seen and spoke with the staff. Per staff, the patient is doing well. Medication compliant. No behavioral problems or issues. She is pleasantly confused. The patient was in the day area. She was actually doing crafts. When asked what she is doing, she was not able to answer what she is doing. She reports good sleep and appetite. She was not in any acute distress. She denied any side effect from the medication also. MENTAL STATUS EXAMINATION: Pleasant, cooperative. Described her mood as "okay." Affect, mood congruent. Thought process is confabulation. She denied auditory or visual hallucination. No delusion or paranoia noted. She denied suicidal ideation, intent or plan. She also denied homicidal ideation, intent or plan. ASSESSMENT: 1. Cognitive disorder, not otherwise specified. 2. 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 PLAN: 1. Continue current medications and care. 2. Continued redirection. 3. Final medication management and discharge planning by the regular team. JONATHAN SHIN MD CM:MICHELL 30 27 Sherin SHIN 04/03/172229 interface
--- NOTE | ~2017-03-29 | PR ---
[place], [place] PROGRESS NOTE [id number] #: [id number] ROOM: 315 DOCTOR: RICK CHAN MD BIRTHDATE: [birth year] DOS: 04/01/2017 CHIEF COMPLAINT: "Oh honey. Thank you for visiting." SUMMARY OF THE VISIT: The patient was interviewed in the dining area where she sat eating her breakfast. She had most of her breakfast tray eaten. Nurses report to me that her appetite has been dramatically improved since she has been here and she is eating 80-100% of every meal. On examination this morning, she was bright and pleasant and very conversant. She smiled readily and offered no complaints. She remains confused, however, and disoriented, but pleasantly so. MENTAL STATUS: She is alert and oriented to person, it is doubtful place and certainly not time. Mood does seem to have trended significantly towards euthymia and affect is much more appropriate. There is no symptom suggestive of hypomania or faisal. Likewise, there are no auditory or visual hallucinations. No delusions are present. No paranoia is present. Short term memory is exceedingly poor, otherwise she is intact. PLAN: I will go ahead and maximize the dose of the Exelon patch from 9.5-13.3 mg daily. Maintain the current dose of Namenda, but plan to increase this from its 10 mg a day dose to 15 and ultimately 20 mg a day. We will continue to engage in individual and seymour milieu activity with the plan to return back to [facility] when psychiatrically stable. RICK CHAN MD CM:PNTRANS 9 3 RICK CHAN MD 04/01/17814 interface
--- NOTE | ~2017-03-29 | PR ---
[place], [place] PROGRESS NOTE NAME: SUZIE HERNANDES LOCATED WITHIN [facility] #: [id number] UNIT #: [id number] ROOM: 315 DOCTOR: Sherin SHIN,JONATHAN BIRTHDATE: [birth year] DOS: 04/02/2017 SUBJECTIVE: The patient seen and spoke with the staff. Per staff, the patient is doing well. No behavioral problems or issues. Medication compliant. She is sleeping well. Her appetite is good. Easily redirectable. The patient was pleasant and cooperative. She was in the day area. She reports doing "good." She denied depressed mood or hopelessness. Denied any other neurologic signs, symptoms or depression. She said that she is happy that she is getting the help that she needed and for being in the hospital. She did not express any problems or concerns. MENTAL STATUS EXAMINATION: Pleasant and cooperative. Describes her mood as "good." Affect, mood congruent. Thought process goal directed. No flight of ideas or loosening of association. She denied auditory or visual hallucination. No delusion or paranoia noted. She denied any suicidal ideation, intent or plan. She also denied homicidal ideation, intent or plan. ASSESSMENT: Major depressive disorder, recurrent, severe without psychotic features. PLAN: 1. Continue current medication and care. 2. Continue redirection. 3. Supportive care and seymour milieu. JONATHAN SHIN MD CM:MICHELL [id number] Sherin SHIN 04/04/17 0521 interface
--- NOTE | ~2017-03-29 | PR ---
[place], [place] PROGRESS NOTE NAME: SUZIE HERNANDES [facility] #: [id number] UNIT #: [id number] ROOM: 315 DOCTOR: RICK CHAN MD BIRTHDATE: [birth year] DOS: 03/31/2017 CHIEF COMPLAINT: "Oh now that I worked, I am definitely hungry, will you walk me down to breakfast?" SUMMARY OF THE VISIT: The patient was interviewed in the hallway as she was interacting with the Physical Therapy Department. She had ambulated about a quarter of the hallway on her own with assistance in that he walked next to her, but did not support her in any way. Upon sitting down in her wheelchair, she engaged readily in conversation with me. She smiled and joked readily with me, reporting that since she worked so hard, she worked up an appetite and is ready for breakfast. She was bright and pleasant and offered no other complaints. MENTAL STATUS: She is alert and oriented to person, possibly place, but not time. Mood does seem to be more euthymic. Affect is much more appropriate. There are no symptoms of faisal or hypomania. There are no overt auditory or visual hallucinations. No delusions, no paranoia. Short term memory has gaps, otherwise she is intact. PLAN: She is tolerating the current medication regimen extremely well. I see no sedation or somnolence. I will maintain her current dose of Remeron and Exelon. I will increase her Namenda from 5 to 5 mg twice a day, augmenting the effectiveness of the Exelon patch in helping improve or maintain ADLs, behavior and cognition. Once medically stable, will return to [facility]. RICK CHAN MD CM:PNTRANS [phone] RICK CHAN MD 03/31/17 0938 interface
--- NOTE | ~2017-03-29 | WRIGHTHP ---
[place], [place] PATIENT HISTORY AND PHYSICAL EXAM NAME: SUZIE HERNANDES [facility] #: [id number] UNIT #: [id number] ROOM: 315 DOCTOR: RICK CHAN MD BIRTHDATE: [birth year] DOS: 03/30/2017 CHIEF COMPLAINT: "Oh hi honey, "I don't know what I am doing here." HISTORY OF PRESENT ILLNESS: This is a 76-year-old white female who was recently evaluated by me while she was at [facility]. At that time, the patient presented acutely depressed with poor sleep and appetite. In fact, her appetite was so poor they had started her on Megace in order to raise it. The patient was started on Remeron in lieu of her current antidepressant and the following day became increasingly confused, very sluggish to respond and very lethargic. She was evaluated in the emergency room and it was felt that her depressive symptoms were so significant that inpatient stabilization was warranted. PAST MEDICAL HISTORY: Remarkable for allergies to DIGOXIN, ADHESIVE TAPE, LISINOPRIL and NSAIDs. Additionally, she has hyperlipidemia, hypothyroidism, vitamin D deficiency, coronary artery disease, osteoporosis, hypertension, urinary frequency as medical issues. MENTAL STATUS EXAMINATION: This morning, she is alert and oriented to person, possibly place, but not time. She was very alert and engaging and engaged readily in conversation. Of note, there was no sedation, somnolence or sluggishness noted. She did report that she slept better last night and does feel rested. She is perplexed and bewildered as far as where she came from or why she is here. When I did mention [facility], she nodded as if she remembered being at [place]. Of note, there was no symptom suggestive of hypomania or faisal. There were no overt auditory or visual hallucinations. She does process slowly but does actually have some spontaneous ____. Short term memory is poor. DIAGNOSIS: Major depression, recurrent, severe. PLAN: I had already increased her Remeron from 15 mg to 22.5 mg at bedtime in an effort to lessen the possibility of somnolence. This does seem to be effective to date. I will increase her Exelon patch from 4.6 mg daily to 9.5 mg daily to impact positively on ADL maintenance, behavior and cognition. I will augment the Exelon patch with Namenda 5 mg at bedtime. We will engage in individual and seymour milieu activities with the ultimate plan to return back to [place] when psychiatrically stable. [place], [place] PATIENT HISTORY AND PHYSICAL EXAM NAME: SUZIE HERNANDES UNIT #: [id number] ROOM: [facility] DOCTOR: RICK CHAN MD BIRTHDATE: [birth year] RICK CHAN MD CM:HISPHYS:PATIENT HISTORY AND PHYSICAL EXAMINATION [phone] RICK CHAN MD 03/30/17 1318 interface
--- NOTE | ~2017-03-29 | PR ---
[place], [place] PROGRESS NOTE NAME: SUZIE HERNANDES [facility] #: [id number] UNIT #: [id number] ROOM: 315 DOCTOR: RICK CHAN MD BIRTHDATE: [birth year] DOS: 04/05/2017 CHIEF COMPLAINT: "I am so hungry, I can't wait for breakfast." SUMMARY OF THE VISIT: The patient was interviewed as she was sitting in the dining area waiting for breakfast. As I approached, she smiled. She seems very bright. She was spontaneous and pleasant. She reports that she slept well and is anxious to eat breakfast. Nurses report that her mood has taken a significant upswing and she is much more pleasant and bright, interactive and she has been eating most if not 100% of her meals. She is tolerating the current medication regimen well. MENTAL STATUS: She is alert and oriented to person, place, but not time. Mood does seem to be strongly trending towards euthymia. Affect is much more appropriate. There are no symptoms of hypomania or faisal. There are no overt auditory or visual hallucinations. No delusions, no paranoia. Short term memory has gaps, otherwise she is intact. PLAN: I will increase her Namenda to its maximum dose of 10 mg twice daily as it augments the effectiveness of the Exelon patch. I will renew Ativan in case she requires any further intervention, monitor for risks, benefits of the medicines, planning to discharge back to [facility] when psychiatrically stable. RICK CHAN MD CM:PNTRANS [phone] RICK CHAN MD 04/05/17 0818 interface
--- NOTE | ~2017-03-29 | DS ---
[place], [place] DISCHARGE SUMMARY NAME: SUZIE HERNANDES [facility] #: [id number] UNIT #: [id number] ROOM: 315 DOCTOR: RICK CHAN MD BIRTHDATE: [birth year] DOS: 04/06/2017 CHIEF COMPLAINT: "Oh hi honey, I do not know what am I doing here?" HISTORY OF PRESENT ILLNESS: This is a 76-year-old white female who was recently evaluated by me at [facility]. The patient has been acutely depressed with poor sleep and significantly altered appetite. Her appetite has been so poor; she was recently started on Megace in order to increase it. The patient was started on Remeron, but apparently became very sluggish and very difficult to respond and lethargic and was brought to the Emergency Room. She presented there acutely depressed and very much motor retarded. Because of the significant alteration in mental status, the patient was admitted to the psych unit to further evaluate her depression, stabilize on medication with the ultimate plan to return back to [place] when stable. PAST MEDICAL HISTORY: Remarkable for allergies to DIGOXIN and ADHESIVE TAPE, LISINOPRIL and NSAIDs. She also has a history of hyperlipidemia, hypothyroidism, vitamin D deficiency, coronary artery disease, osteoporosis, hypertension, and urinary frequency. SUMMARY OF HOSPITAL COURSE: The patient was admitted to the unit where she was continued on her Remeron, Exelon patch and Namenda. The Remeron dose was increased from 15 to 22.5 mg a day to lessen some of the sedation and somnolence. This did have a positive effect on her. Additionally, both the Exelon patch and Namenda were rapidly titrated to their maximum doses. Exelon patch increased to 13.3 mg daily and the Namenda to 10 mg twice daily. She had a rapid and dramatic improvement, sleep normalized and she woke up feeling refreshed and invigorated. Her appetite dramatically improved to the point where she was eating nearly 100% of all meals. She engaged readily in conversation, was bright and pleasant. She offered no other complaints. There was no agitation or aggression. There was no sedation, somnolence or other side effects. She was discharged then back to [place] on April 06 where I will follow her upon her return. MENTAL STATUS AT DISCHARGE: The patient was alert and oriented to person, place, but approximate to time. Mood was euthymic. Affect appropriate. There was no faisal or hypomania. There were no overt auditory or visual hallucinations. No delusions, no paranoia. Short term memory was poor. FINAL DIAGNOSES: Major depression, recurrent, severe and Alzheimer's dementia. PLAN: The patient is to be discharged to [facility]. All of her prescriptions have been printed and will be sent with her. I will follow her upon her return there. [place], [place] DISCHARGE SUMMARY NAME: [facility] HERNANDES [facility] [id number] UNIT #: [id number] ROOM: [facility] DOCTOR: RICK CHAN MD BIRTHDATE: [birth year] RICK CHAN MD CM:DISCHARG RICK CHAN MD 04/06/17 0846 interface
[2017-03-29] MEDS ORDERED: MEGACE 40400 MG/10 PO (13:16)
[2017-03-29 13:49] VITALS: BP 119/78
--- NOTE | 2017-03-29 15:03 | NUR ---
NOTIFIFED OF MEDICAL MANAGEMENT CONSULT NEEDED.
[2017-03-29 15:15] VITALS: BP 119/78
--- NOTE | 2017-03-29 15:20 | NUR ---
SUZIE HERNANDES a 76 year old F admitted via wheel chair from the EMERGENCY ROOM as a voluntary BY POA admission. Arrived on unit at 1350. ALLERGIES: DIGOXIN, NSAIDS, ADHESIVE TAPE, LISINOPRIL . Vital signs are: 97.6-88-18 119/78. The client'S POA signed the following forms with stated understanding: Authorization For The Release of Medical Information, Clothing List, Consent to Voluntary Admission and Hospitalization, Consent and Release Forms/Receipt of Rights, Acknowledgement of Advance Directive Information, Behavioral Health Consent Form, and Informed Consent of Medications. Admitted under the services of Dr. ROCIO HERNANDEZ,[facility]. A search was conducted and hazardous articles were removed. Client was oriented to the unit. JAYLEN FLORES
--- NOTE | 2017-03-29 15:26 | NUR ---
PT ARRIVED ON THE UNIT AT 1350 VIA WHEELCHAIR WITH THIS NURSE, SECURTITY, SON AND DAUGHTER ACCOMPANYING. PT ALERT TO PERSON AND PLACE. PT MOOD IS DEPRESSED. PT CALM, INTERACTING WITH STAFF AND FAMILY DURING ADMISSION PROCESS. PT DENIES ANY SUICIDAL/HOMICIDAL THOUGHTS. NO HALLUCINATIONS OR DELUSIONS NOTED. VS 97.8-88-18-119/78-99%RA.
[2017-03-29 20:11] VITALS: BP 124/68
--- NOTE | 2017-03-29 23:52 | NUR ---
PATIENT IN ROOM AND BED DURING HS MEDICATION PASS. DURING 1:1 PATIENT WAS PLEASANT UPON APPROACH AND STATED "I FEEL FINE HONEY, IM JUST TIRED AND READY FOR BED". DENIES FEELING OF SI/HI AND HALLUCINATIONS, NO NOTED RESPONDING TO INTERNAL STIMULI. STATES SHE FEELS "DEPRESSED AT TIMES" BUT "IM OKAY RIGHT NOW". PATIENT INFORMED THAT IF THOUGHTS ARISE TO HARM SELF OR OTHERS TO NOTIFY STAFF. PATIENT CONTRACTED FOR SAFETY. MEDICATION COMPLIANT WITHOUT DIFFICULTY AFTER REVIEW. NO PHYSICAL COMPLAINTS VOICED. PATIENT CURRENTLY IN BED WITH EYES CLOSED. RESPIRATIONS EASY AND REGULAR. NO SIGNS OR SYMPTOMS OF DISTRESS NOTED. REFER TO [facility] FLOWSHEET FOR SPECIFIC MONITORING.
--- NOTE | 2017-03-30 01:42 | NUR ---
24 HOUR CHART CHECK COMPLETED.
--- NOTE | 2017-03-30 05:59 | NUR ---
PATIENT OBSERVED ON Q 15 MIN SAFETY CHECKS TO HAVE SLEPT THROUGHOUT THE NIGHT WITH ONE BRIEF AWAKENING WHEN SHE STATED TO STAFF SHE WANTED TO "CLEAN HER ROOM". EASILY RETURNED TO SLEEP WITHOUT DIFFICULTY AFTER REDIRECTION FROM STAFF. NO SIGNS OR SYMPTOMS OF DISTRESS NOTED.
[2017-03-30 07:26] LABS: BASO # 0.1 10*3/uL (0.0-0.1); BASO % 0.6 % (0.0-1.0); EOS # 0.3 10*3/uL (0.0-0.4); EOS % 3.8 % (1.0-4.0); HEMATOCRIT 43.6 % (37.0-47.0); HEMOGLOBIN 14.6 g/dl (12.0-16.0); LYMPH # 2.3 10*3/uL (1.3-4.4); LYMPH % 28.7 % (27.0-41.0); MEAN CELL VOLUME 90.8 fl (81.0-99.0); MEAN CORPUSCULAR HGB 30.4 pg (27.0-31.0); MEAN CORPUSCULAR HGB CONC 33.5 g/dl (33.0-37.0); MEAN PLATELET VOLUME 9.4 fl (9.6-12.3); MONO # 0.7 10*3/uL (0.1-1.0); MONO % 8.5 % (3.0-9.0); NEUT # 4.7 10*3/uL (2.3-7.9); PLATELET COUNT AUTOMATED 265 10*3/uL (130-400); RED CELL DISTRI WIDTH 16.3 % (0-14.5); WHITE BLOOD COUNT 8.1 10*3/uL (4.8-10.8)
[2017-03-30 07:45] LABS: CREATININE 1.14 mg/dL (0.55-1.02); POTASSIUM 3.7 mmol/L (3.5-5.1); TOTAL PROTEIN 6.8 gm/dL (6.4-8.2)
[2017-03-30 07:51] LABS: THYROID STIM HORMONE (HS) 0.364 uIU/ml (0.358-4.75)
[2017-03-30 07:56] VITALS: BP 117/71
[2017-03-30 08:48] LABS: VITAMIN D, 25-HYDROXY 51.8 ng/mL (30-100)
--- NOTE | 2017-03-30 09:16 | NUR ---
JARED ATKINSNP ON UNIT TO ASSESS PT.
--- NOTE | 2017-03-30 11:21 | NUR ---
Stress/anger management, goals and orientation/trivia group Patient present and participated in group. Patient confused with discussion at times however behavior was appropriate throughout group.
--- NOTE | 2017-03-30 12:47 | NUR ---
PT ALERT TO PERSON AND PLACE. PT MED COMPLIANT WITHOUT DIFFICULTY, UNABLE TO PROVIDE MED EDUCATION D/T INCREASED CONFUSION. PT MOOD IS STABLE. PT CONFUSED AT TIMES, ASKING THIS NURSE, "DO YOU HAVE MY ON'S LICENSE NUMBER, I NEED TO FIND HIM SO I CAN TELL HIM I'M HERE." ADVISED PT THAT HER SON IS AWARE THAT SHE IS IN THE HOPSITAL AND WE COULD CALL HIM IF SHE WANTS. PT DENIES ANY HOMICIDAL/SUICIDAL THOUGHTS. NO HALLUCINATIONS OR DELUSIONS NOTED AT THIS TIME. PT PROPELS SELF SHORT DISTANCES IN WHEELCHAIR. PT CONTINENT OF BOWEL AND BLADDER, EPISODES OF INCONTINENCE NOTED, CARE PROVIDED NEEDED. PT TREATMENT PLAN TARGETS #1- INCREASED CONFUSION R/T MED CHANGES AEB LETHARGY AND GENERAL WEAKNESS, #2 AT RISK FOR FALLS. PT PLACED ON FALL PROTOCOL PER POLICY. PLAN IS TO ENCOURAGE PT TO VOICE ANY HALLUCINATIONS, PRESENT REALITY TO PT WITH EACH INTERACTION AND NEEDED, PROVIDE 1 TO 1 FOR PT TO EXPRES FEELINGS.
--- NOTE | 2017-03-30 15:07 | NUR ---
Games and relaxation Patient in quiet room sleeping during group.
--- NOTE | 2017-03-30 15:21 | NUR ---
PHYSICAL THERAPY Physical Therapy Evaluation completed this date. See eval document for further details. Will begin PT intervention to address the impairments of muscle weakness, decreased functional mobility I, and difficulty ambulating. Recommend pnt return to [facility] [place] able[place] [id number] based on chart review and PT eval. Cathi Rutherford, PT
[2017-03-30 20:15] VITALS: BP 112/66
--- NOTE | 2017-03-30 22:47 | NUR ---
PATIENT ALERT TO PERSON AND PLACE. THOUGHT PROCESS IS CONFUSED. PATIENT FORGETFUL IN DINING AREA AND ATTEMPTING TO AMBULATE WITHOUT ASSISTANCE. PATIENT WITH UNSTEADY GAIT. PATIENT REDIRECTED AND ABLE TO SIT IN CHAIR TO WATCH TELEVISION. THIS NURSE SPOKE WITH DAUGHTER ANAYA AND AWARE THAT PATIENT IS HAVING A GOOD DAY AND IS EASILY REDIRECTED. PATIENT TREATMENT PLAN FOCUSES ON INCREASED CONFUSION RELATED TO MEDICATIONS AND FALL RISK. PATIENT FOLLOW FALL PRECAUTIONS PER POLICY AND FOR PATIENT TO TAKE MEDICATIONS PRESCRIBED
--- NOTE | 2017-03-31 03:44 | NUR ---
24 HR chart check completed.
--- NOTE | 2017-03-31 06:10 | NUR ---
Q 15 MINUTE SAFETY CHECKS MAINTAINED. SLEPT > 7 HOURS THROUGHOUT SHIFT. VOICES NO COMPLAINTS OF PAIN OR DISCOMFORT AT THIS TIME
[2017-03-31 08:09] VITALS: BP 108/59
--- NOTE | 2017-03-31 09:00 | NUR ---
JARED MACE CNP OF [facility]PITAL[facility] HERE TO SEE PT AT THIS TIME, MADE AWARE BP THIS AM 108/58 - M.NAKITA STATES TO HOLD CARDIZEM, GIVE LOPRESSOR AND COOZAR.
--- NOTE | 2017-03-31 09:59 | NUR ---
PHYSICAL THERAPY Mago was seen this AM 1:1, Pt up in the day room. Wheeled out into the cruz for treatment. Transfer sit/stand MOD A X 1, standing balance with wheeled walker MIN A X 1. Gait total 80' X 2, W/W MOD ICT DEVELOPER X 1 today one sitting rest. Worked in gait balance with gait backwards, right and left side stepping, 360 turn and single leg stand at this window with MOD ICT DEVELOPER X 1 and followed cues well this visit. Pt wheeled back to the day room in her gerichair. LORENA PIERRE DIRECTOR OF CLINICAL APPLICATIONS.
--- NOTE | 2017-03-31 10:00 | NUR ---
PT IS ALERT AND ORIENTED TO SELF ONLY, CONFUSED IN ALL OTHER AREAS. ST/LT MEMORY DEFICITS NOTED. RESPIRATIONS EASY ON ROOM AIR. MOOD IS STABLE, AFFECT IS APPROPRIATE. SPEECH IS WNL, CONFUSED. ABLE TO VERBALIZE NEEDS. PT DENIES SI/HI. PT DENIES HALLUCINATIONS, NO RESPONSE TO INTERNAL STIMULI NOTED. NO PARANOIA/DELUSIONS NOTED. MEDICATION COMPLIANT WITHOUT DIFFICULTY. MEDS TAKEN WHOLE WITHOUT INCIDENT. PT IN WHEELCHAIR FOR MOBILITY AND SAFETY. FALL RISK PRECAUTIONS MAINTAINED. PT RELIANT ON STAFF FOR ASSISTANCE WITH ADLS. PT FED SELF, ATE 100% OF BOTH BREAKFAST AND LUNCH WITH ADEQUATE FLUID INTAKE. PT AWAKE AND ALERT FOR GROUPS/ACTIVITIES. NO DISTRESS NOTED. Q15 MIN MONITORING CONTINUE PER POLICY. REFER TO [facility] FLOWSHEET FOR SPECIFIC MONITORING. PLAN TO CONT CURRENT TX PLAN.
--- NOTE | 2017-03-31 11:20 | NUR ---
Games,Exercise and Trivia Patient did attend group as well as actively participated. Patient was confused at times but would ask for a question to be repeated,then answer. Patient was very pleasent throughout group
--- NOTE | 2017-03-31 13:12 | NUR ---
PT NOTED TO BE MORE CONFUSED/RESTLESS AT THIS TIME, ATTEMPTED TO GET UP OUT OF CHAIR UNASSISTED, ALL PHYSICAL NEEDS MET, REDIRECTION AND 1:1 PROVIDED, INEFFECTIVE OF THIS TIME. PT CLOSE TO NURSE'S STATION AT THIS TIME FOR OBSERVATION FOR SAFETY.
--- NOTE | 2017-03-31 15:27 | NUR ---
Thanksgiving Day Reminiscing Patient was in attendence as well as participated. Patient was very pleasent but confused during group
--- NOTE | 2017-03-31 17:55 | NUR ---
SHIFT CHART CHECK COMPLETED.
[2017-03-31 19:39] VITALS: BP 145/77
--- NOTE | 2017-03-31 21:11 | NUR ---
PT ALERT TO PERSON ONLY, PLESANTLY CONFUSED AT THIS TIME CONVERSING APPROPRIATLY WITH PEER. UNRECEPTIVE TO 1-1 DUE TO INABLITY TO STAY FOCUSED ON TOPIC. CONSUMED HS SNACK. MEDS PLACED IN PUDDING, PT HESITANT TO TAKE THEM WHOLE. PT SPIT OUT MEDS STATING "I DONT LIKE NUTS" PT EDUCATED AND CONITNUED TO SPIT OUT MEDICATION. MEDS CRUSHED IN PUDDING WITH EXCEPTION OF METROPOLOL XL. UNRECEPTIVE TO EDUCATION. PT EXHIBITS NO RESTLESS OR ANXIOUS BEHAVIOR AT THIS TIME. PLESANT AND COOPERATIVE. CONTINUE POC
--- NOTE | 2017-04-01 03:12 | NUR ---
24 HR chart check completed.
--- NOTE | 2017-04-01 05:55 | NUR ---
PT SLEPT 8 HOURS WITH OUT INTURRUPTION
[2017-04-01 07:36] VITALS: BP 110/53
--- NOTE | 2017-04-01 09:39 | NUR ---
PHYSICAL THERAPY Patient seen 1:1 for therapy visit and was sitting up in recliner chair with lap tray following breakfast. Patient presented with increased clarity, however required several v/c's to complete all task. Patient transfered sit to stand Min A and ambulated with use of wh walker, 120'x 1, Min A x 1, demonstrating L side deviation. Patient also needed v/c for increased safety while backing up to sit down in chair. Patient returned to recliner chair and remained in activity room with lap tray and staff Supervision. Will continue per POC to improve functional transfers and mobilty as tolerated. Hitesh Krause, INDUSTRIAL ROBOTICS MECHANIC
--- NOTE | 2017-04-01 09:47 | NUR ---
Occupational Therapy evaluation completed this date on 3 with full eval to follow. Precautions include fall risk, 3N, impaired balance, safety and cognition,moderate complexity level 12212. Recommend OT per POC and SNF upon d/c to enable max potential in functional mobility and ADLs. Thank you for this referral. Nara Galindo OTR/l
--- NOTE | 2017-04-01 12:39 | NUR ---
PT ALERT TO PERSON, CONFUSED TO ALL OTHER ASPECTS. PT MED COMPLIANT WITHOUT DIFFICULTY, UNABLE TO PROVIDE MED EDUCAITON D/T INCREASED CONFUSION. PT MOOD IS STABLE, ANXIOUS AND RESTLESS AT TIMES. PT CALM, INTERACTING WITH STAFF AND PEERS.PT CONTINENT OF BOWEL AND BLADDER, EPISODES OF INCONTINENCE NOTED, CARE PROVIDED NEEDED. PLAN IS TO MONITOR PT BEHAVIORS ON Q15 MIN SAFETY CHECKS, ENCOURAGE MED COMPLIANCE, PRESENT REALITY TO PT WITH EACH INTERACTION AND NEEDED.
--- NOTE | 2017-04-01 13:02 | NUR ---
Goals/exercise/Getting Rid of Stress Patient was in attendence for group with limited participation. For the first portion of group patient was asleep in her chair. Patient woke up soon after and since there was only 2 of us in group, we decided to do a craft. So it was decided to make a "Get Rid of Stress bank." As we got ready to start the other patient was taken out by SW for a meeting. Patient and I began discussion and craft but patient then stated she needed to use the bathroom. So it was decided this craft would be continued in afternoon group
--- NOTE | 2017-04-01 15:30 | NUR ---
Movies and Ice Cream Patient did attend and participated in this group. Patient was originally asleep at begining of group but woke up to join. Patient very pleasent and talked with other patients and staff about the movies playing.
[2017-04-01 19:46] VITALS: BP 126/70
--- NOTE | 2017-04-02 03:07 | NUR ---
PT MED COMPLIANT. A&O TO PERSON ONLY. PLEASANTLY CONFUSED. NO HALLUCINATIONS OR DELUSIONS NOTED. INTERACTIVE WITH STAFF AND PEERS. NO SI/HI NOTED. FALL PRECAUTIONS MAINTAINED. Q15 MINUTE CHECKS MAINTAINED. RESPIRATIONS EASY AND NON LABORED. SEE [facility] FLOWSHEET FOR SPECIFIC MONITORING.
--- NOTE | 2017-04-02 05:49 | NUR ---
PT SLEPT APPROXIMATELY 7.5 HOURS UNINTERRUPTED THIS SHIFT.
[2017-04-02 07:37] VITALS: BP 128/72
--- NOTE | 2017-04-02 10:14 | NUR ---
PT IS ALERT AND ORIENTED TO SELF ONLY, PLEASANTLY CONFUSED IN OTHER ASPECTS. ST/LT MEMORY DEFICITS NOTED. RESPIRATIONS EASY ON ROOM AIR. MOOD IS STABLE, AFFECT IS BROAD RANGE, SPEECH IS WNL AND COHERENT, ABLE TO MAKE NEEDS KNOWN. PT DENIES SI/HI. PT DENIES HALLUCINATIONS, NO RESPONSE TO INTERNAL STIMULI NOTED. NO PARANOIA/DELUSIONS NOTED. MEDICATION COMPLIANT WITHOUT DIFFICULTY. PT IS CALM AND COOPERATIVE, INTERACTIVE WITH STAFF AND PEERS. PT USES WHEELCAHIR FOR SAFETY/MOBILITY, WALKED WITH STAFF ASSIST X2 TO BATHROOM. CONTINENT OF BOWEL AND BLADDER. FEEDS SELF WITH SET UP ASSIST, GOOD APPETITE WITH ADEQUATE FLUID INTAKE NOTED. NO DISTRESS. Q15 MIN SAFETY CHECKS MAINTAINED, FALLING STAR PROGRAM MAINTAINED, REFER TO [facility] FLOWSHEETS FOR SPECIFIC MONITORING.
--- NOTE | 2017-04-02 11:05 | NUR ---
DR. SHIN HERE TO SEE PT AT THIS TIME, UPDATE GIVEN.
--- NOTE | 2017-04-02 12:56 | NUR ---
Reminiscing Patient was in attendence with limited participation. Patient was confused throughout group and while reminiscing tended to repeat what a previous patient stated during their reminiscing
--- NOTE | 2017-04-02 15:56 | NUR ---
[place] Patient was in attendence for group but did not participate. Patient was confused,wanting to "go home." Patient was unable to understand why she could not drive herself home. Patient soon fell asleep
[2017-04-02 19:50] VITALS: BP 129/63
--- NOTE | 2017-04-02 20:30 | NUR ---
PATIENT'S KINSEY JULIEN CALLED FOR UPDATE ABOUT PATIENT. WILL BE CALLING ON TUESDAY TO CHECK ON DISCHARGE PLANS
--- NOTE | 2017-04-03 06:04 | NUR ---
PT SLEPT GREATER THAN 8 HOURS UNINTERRUPTED. NO S/S OF DISTRESS NOTED. NO HALLUCINATIONS OR DELUSIONS NOTED. NO SI/HI NOTED. Q15 MINUTE SAFETY CHECKS MAINATINED. FALL PRECAUTION MAINTAINED. RESPIRATIONS EASY AND NON LABORED. INTERACTIVE WITH PEERS AND STAFF. CALM AND PARTICIPATING. MEDICATION COMPLIANT. SEE [facility] FLOWSHEET FOR SPECIFIC MONITORING.
[2017-04-03 07:42] VITALS: BP 118/60
--- NOTE | 2017-04-03 10:11 | NUR ---
PT IS ALERT AND ORIENTED TO SELF ONLY, PLEASANTLY CONFUSED IN ALL OTHER ASPECTS. ST/LT MEMORY DEFICITS NOTED. RESPIRATIONS EASY ON ROOM AIR. MOOD IS STABLE, AFFECT IS APPROPRIATE. SPEECH IS WNL AND COHERENT, ABLE TO MAKE NEEDS KNOWN WITHOUT DIFFICULTY. PT DENIES SI/HI. PT DENIES HALLUCINATIONS, NO RESPONSE TO INTERNAL STIMULI NOTED. NO PARANOIA/DELUSIONS NOTED. MEDICATION COMPLIANT WITHOUT DIFFICULTY. PT IS CALM AND COOPERATIVE, INTERACTIVE WITH STAFF AND PEERS, PARTICIPATES IN GROUPS AND ACTIVITIES. PT USES WHEELCHAIR FOR MOBILITY AND SAFETY D/T UNSTEADY GAIT, FALLING STAR PROGRAM MAINTAINED. PT REMINDED TO ASK FOR ASSISTANCE WHEN NEEDING TO AMBULATE OR TRANSFER. PT VERBALIZED UNDERSTANDING. PT REQUIRES STAFF ASSIST X1 FOR ADLS AND TOLIETING. FEEDS SELF WITH SET UP ASSIST. DISPLAYS GOOD APPETITE WITH ADEQUATE FLUID INTAKE. NO DISTRESS NOTED. Q15 MIN MONITORING CONTINUES PER POLICY. REFER TO [facility] FLOWSHEET FOR SPECIFIC MONITORING, CONTINUE CURRENT TX PLAN.
--- NOTE | 2017-04-03 10:16 | NUR ---
DR. SHIN HERE TO SEE PT AT THIS TIME, UPDATE GIVEN.
--- NOTE | 2017-04-03 12:08 | NUR ---
PT GIVEN FULL SHOWER, HAIR SHAMPOOED. HOUSE LOTION APPLIED. PT PARTICIPATED IN SHOWER SHE WAS ABLE TO DO SAFELY.
--- NOTE | 2017-04-03 13:35 | NUR ---
Positive sayings disha Patient was in attendence with 1:1 participation. Patient was doing well at the begining of group but soon became confused and needed 1:1 assisstance. With 1:1 patient did well
[2017-04-03 20:02] VITALS: BP 109/62
--- NOTE | 2017-04-04 02:17 | NUR ---
24 HR chart check completed.
--- NOTE | 2017-04-04 05:35 | NUR ---
PT ALERT TO PERSON AND PLEASANTLY CONFUSED. INTERTACTIVE WITH PEERS AND STAFF. SLEPT APPROXIMATELY 8 HOURS WITH 2 AWAKENINGS. MEDICATION COMPLIANT. Q15 MINUTE SAFETY CHECKS MAINTAINED. FALL PRECAUTIONS MAINTAINED. SEE [facility] FLOWSHEET FOR SPECIFIC MONITORING.
--- NOTE | 2017-04-04 08:00 | NUR ---
Afternoon 04/03/17 Quarter Cornhole Puzzle and Conversation Patient was in attendence but did not participate. Patient was asleep in her chair. This AC attempted to wake patient x 3 but she kept falling back to sleep.
--- NOTE | 2017-04-04 09:17 | NUR ---
PHYSICAL THERAPY Patient seen this am 1:1 for therapy sitting up in recliner chair with lap tray following breakfast. Patient required several v/c's to complete all treatment this am while performing seated B LE therex, all planes x 15 reps each. Patient transfers Sit to stand, Min A and ambulates with use of wh walker, 100'x 1, CGA, demonstrating very slow lito and Fair- walker safety / navigaiton as patient "drifts" outside of walker secondary to decreased focus on task. Patient returned to recliner chair with lap tray and remained under staff Supervision in activity room. Will continue per POC to improve functional transfers and mobility as tolerated. Hitesh Krause, HOME HEALTH AID
--- NOTE | 2017-04-04 09:24 | NUR ---
PATIENT SEEN 1:1 OT THIS DATE. PATIENT IDENTIFIED BY NAME AND DATE OF . PATIENT IN DAY ROOM FINISHING BREAKFAST. PATIENT COMPLETED GROOMING TASK STANDING AT SINK BRUSH TEETH AND COMB HAIR APPROX 2 MINUTES WITH SEATED REST BREAK. COMPLETED FUNCTIONAL XFER TRAINING SIT TO STAND GARY CHAIR CGA WITH VERBAL CUES PROPER HAND PLACEMENT AND STAND PIVOT TRANSFER RECLINER TO TOILET MIN A WITHOUT USE AD AND VERBAL CUES PROPER USE GRAB BAR SUPPORT. PATIENT COMPLETED TOILETING MIN A CLOTHES MANAGEMENT AND VERBAL CUES SAFETY. PATIENT COMPLETED STAND PIVOT TRANSFER TOILET TO RECLINER MIN A WITHOUT USE AD. PATIENT COMPLETED HAND WASHING AND WASHING FACE CGA STANDING AT SINK WITH C/O FATIGUE VERBALIZING NEED SEATED REST BREAK. PATIENT DEMONSTRATED NO LOSS BALANCE. PATIENT'S ADL ITEMS PLACED BACK IN CUPBOARD AND LOCKED. VICENAT LOWERY
--- NOTE | 2017-04-04 11:38 | NUR ---
JIGNESH offered grp. to pt. pt. talking about her family and chilren. SW did ind. session. pt. pleasant and cooperative and seemed "content" talking with SW. pt. to be d/c'ed back to [facility].
--- NOTE | 2017-04-04 12:44 | NUR ---
Goals,Exercise,Fun Facts... Patient did attend group as well as participated. Patient was very comical throughout group. At one point we were working on the puzzle and patient became very confused. Patient was directed back several times
--- NOTE | 2017-04-04 16:28 | NUR ---
ALERT TO SELF, CONFUSED, RESTLESS AT TIMES, MED COMPLIANT WHOLE IN PUDDING, SOCIAL WITH STAFF AND PEERS, FOLLOWS DIRECTIONS, NOT COMBATIVE, REPEATITIVE, CONTINENT, PREOCCUPIED WITH TOILETING, SET LIMTS , EATING AND DRINKING ADEQUATELY,
[2017-04-04 20:00] VITALS: BP 108/73
--- NOTE | 2017-04-05 04:55 | NUR ---
24 HR chart check completed.
--- NOTE | 2017-04-05 06:54 | NUR ---
PT SLEPT APPROXIMATELY 8 HOURS THIS SHIFT. PLESANTLY CONFUSED. NO HALLUCINATIONS OR DELUSIONS NOTED. NO S/S OF DISTRESS. NO C/O PAIN. INTERACTIVE WITH PEERS AND STAFF. FALL PRECAUTIONS MAINTAINED. Q15 MINUTE SAFETY CHECKS MAINTAINED. SEE [facility] FLOWSHEET FOR SPECIFIC MONITORING.
--- NOTE | 2017-04-05 07:33 | NUR ---
Afternoon 04/04/17 No group this afternoon. Patient asleep in her chair
[2017-04-05 08:15] VITALS: BP 114/58
--- NOTE | 2017-04-05 08:16 | NUR ---
PATIENT CONSUMING BREAKFAST IN AM UPON ARRIVAL. WILL TRY BACK LATER TIME. VICENTA CALLAHAN/Louie
--- NOTE | 2017-04-05 09:15 | NUR ---
NOTIFIED OF LOW BP, STATES TO HOLD ALL BP AND CARDIAC MEDICATIONS.
[2017-04-05 10:16] VITALS: BP 122/88
--- NOTE | 2017-04-05 10:17 | NUR ---
NOTIFIED OF UPDATE BP WITH NNO AT THIS TIME.
--- NOTE | 2017-04-05 10:31 | NUR ---
PHYSICAL THERAPY Mago seen this AM 1:1 for her therapy session, Pt was up in her gerichair in the day room. Wheeled out into the cruz for pt's gait. With verbal cueing for everything. Transfer sit/stand and standing balance MOD ELECTRON MICROSCOPIST X 1, with cueing just to stand and hold her balance. Then gait MODE ELECTRON MICROSCOPIST X 1, and using the cruz hand rail at times for balance 75' X 3, with sitting rest. Working in gait balance with gait backwards, right and left side stepping, 360 turn and single leg stand with MOD ELECTRON MICROSCOPIST X 1, Pt is confused. Gait in and out of Pt's bathroom, then taken back to the day room for her breakfast. LORENA PIERRE CARTRIDGE BELT PUNCHER.
--- NOTE | 2017-04-05 10:44 | NUR ---
Relaxation Patient was in attendence for group as well as participated. 1:1 with patient reading reminiscing stories, from [employer]. Patient and I reminisced about her thanksgiving growing up. We then painted suncatchers. Patient was talkative and comical. Patient showed some confusion during group but calm and relaxed.
--- NOTE | 2017-04-05 11:34 | NUR ---
DR. CHEN AND DR. HERNANDEZ HERE TO SEE PT AT THIS TIME.
--- NOTE | 2017-04-05 12:22 | NUR ---
PATIENT SEEN 1:1 30 MINUTES OT THIS DATE. PATIENT IDENTIFIED BY AND DATE OF . COMPLETED THERAPY IN DAY ROOM. PATIENT COMPLETED FUNCTIONAL XFER TRAINING THAT INCLUDED SIT TO STAND FROM RECLINER MIN A X AND CGA X 2 WITH VERBAL CUES TECH/ PROPER HAND PLACEMENT. PATIENT COMPLETED STAND TOLERANCE ACTIVITY APPROX 5 MINUTES X 2 STANDING AT TABLE CGA COMPLETING PUZZLE (WITH MAX A FOR PROPER PLACEMENT) AND COMPLETED REST OF FMC ACTVITY SEATED UNSUPPORTED WITH F+ SIT BALANCE. PATIENT REQUIRED INCREASE TIME AND REDIRECTION SECONDARY EASILY DISTRACTED. PATIENT DEMONSTRATED FAIR- ACTIVITY TOLERANCE THIS DATE. VICENTA LOWERY
--- NOTE | 2017-04-05 13:11 | NUR ---
SW met with pt. who was in the activity room doing a puzzle. pt. pleasant and talked again about her family. pt is alert and oriented x 2. pt has periods of confusion but overall can carry on a reality-based comversation. A nurse from [place] called and Nurse la nena let her know that pc lbive d/c is for tomorrow.
--- NOTE | 2017-04-05 14:13 | NUR ---
JIGNESH asked pt. and nursing staff that if pt son, Brian, calls back in to ask if he will transport pt. back to [facility] tomorrow or if pt. is to be sent by ambulance? pt. states that if her son doesn't take her, she can go back by ambulance. JIGNESH spoke with pt tavon aponte in regards to d/c tomorrow. Yisel states "I live far away so please fax the paperwork to me for signatures".
--- NOTE | 2017-04-05 15:06 | NUR ---
JIGNESH spoke with Nurse Marce who states pt. son cannot transport due to not having a vehicle. JIGNESH will arrange transportation in the am.
--- NOTE | 2017-04-05 18:53 | NUR ---
NO ACUTE CHANGES FROM YESTERDAY. PT ALERT AND PLEASANTLY CONFUSED PER USUAL.
[2017-04-05 20:00] VITALS: BP 132/70
--- NOTE | 2017-04-05 22:17 | NUR ---
24 HR chart check completed.
--- NOTE | 2017-04-06 05:40 | NUR ---
PT HAS BEEN OBSERVED ON Q 15 MIN CHECKS & HAS SLEPT QUIETLY THROUGHOUT THE SHIFT PAST 2144 WITH 1 BRIEF AWAKENING TO GO TO THE BATHROOM. HAS BEEN CONTINENT OF URINE X 2.
[2017-04-06 07:50] VITALS: BP 137/76
[2017-04-06] MEDS ORDERED: EXELON13.3 MG/21 T (08:10)
[2017-04-06] MEDS ORDERED: MEMANTINE HCL10 MG PO (08:10)
[2017-04-06] MEDS ORDERED: MIRTAZAPINE45 MG PO (08:10)
--- NOTE | 2017-04-06 08:24 | NUR ---
PHYSICAL THERAPY Mago seen this AM 1:1 for her therapy session, Pt was supine in bed and did not want to get up. LORENA PIERRE GLASS BLOWER HELPER.
--- NOTE | 2017-04-06 08:25 | NUR ---
PHYSICAL THERAPY Back this AM to treat Mago, Pt was up in her gerichair. With verbal cueing on what we were going to do this AM. Pt out in the cruz, transfer sit/stand with MOD TESTER OPERATOR HELPER X 1, Mago did not want a wheeled walker at all. Gait MOD TESTER OPERATOR HELPER X 1, with verbal cueing for gait safety, gait 85' X 2, with one sitting rest and just not herself today and needing much verbal cueing with her gait. Pt back up in her gerichair, tray up and taken down to the day room for her breakfast. LORENA PIERRE COLLECTION CARD CLERK.
--- NOTE | 2017-04-06 09:15 | NUR ---
JARED MACE CNP OF HOSPITALIST GROUP MADE AWARE OF DISCHARGE FOR TODAY BACK TO [facility].
--- NOTE | 2017-04-06 09:22 | NUR ---
pt. to be d/c'ed today via [facility] between 11:30-12:00pm. pt. [facility] notified of d/c time, d/c paperwork to be faxed to [facility] today via fax number in front of chart. pt. returning to [facility].
--- NOTE | 2017-04-06 10:15 | NUR ---
JARED MACE CNP OF HOSPITALIST GROUP HERE TO SEE PT AT THIS TIME.
--- NOTE | 2017-04-06 10:42 | NUR ---
PT IS ALERT AND ORIENTED TO PERSON, APPROXIMATE TO PLACE AND TIME. PLEASANTLY CONFUSED. RESPIRATIONS EASY ON ROOM AIR. MOOD IS EUTHYMIC, AFFECT IS BROAD RANGE AND APPROPRIATE. SPEECH IS WNL AND COHERENT, ABLE TO MAKE NEEDS KNOWN WITHOUT DIFFICULTY. PT DENIES SI/HI. PT DENIES HALLUCINATIONS, NO RESPONSE TO INTERNAL STIMULI NOTED. NO PARANOIA/DELUSIONS NOTED. MEDICATION COMPLIANT WITHOUT DIFFICULTY. PT IS CALM AND COOPERATIVE, INTERACTIVE WITH STAFF AND PEERS. PT USES WHEELCHAIR FOR SAFETY D/T UNSTEADY GAIT, FALLING STAR PROGRAM MAINTAINED. PT AMBULATES WITH STAFF ASSISTX1, CONTINENT OF BOWEL AND BLADDER. FEEDS SELF WITH SET UP ASSIST, GOOD APPETITE WITH ADEQUATE FLUID INTAKE NOTED. NO DISTRESS NOTED. Q15 MIN SAFETY CHECKS MAINTAINED, REFER TO [facility] FLOWSHEET FOR SPECIFIC MONITORING.
--- NOTE | 2017-04-06 10:52 | NUR ---
NURSE TO NURSE REPORT GIVEN TO [facility].
--- NOTE | 2017-04-06 11:39 | NUR ---
Goals,Exercise and Australian Trivia Patient did attend group as well as participated. Patient showed some negativity today so discussed goal of working on being possitive. Patient was slighty confused at times during group
--- NOTE | 2017-04-06 11:43 | NUR ---
PT DISCHARGED AT THIS TIME VIA [facility] WITH 2 INSECTICIDE EXPERT BACK TO [facility]. ALL DISCHARGE INSTRUCTIONS AND MEDICATION LIST SENT WITH THE PT. COPIES ON UNIT TO BE FAXED TO [facility]. NURSE TO NURSE REPORT GIVEN PRIOR TO DISCHARGE. ALL PERSONAL BELONGINGS WERE SENT WITH THE PT. PT LEFT IN STABLE CONDITION.
--- NOTE | 2017-04-06 14:42 | NUR ---
PHYSICAL THERAPY CO-SIGN I approve of the Phyical Therapy notes written above. HAILEY ALEMAN PT
--- NOTE | 2017-04-06 14:43 | NUR ---
OCCUPATIONAL THERAPY CO-SIGN I approve of the Occupational Therapy notes written above. MARTHA BARNES OTR/Louie
== END 2017-04-06 11:43 | disposition home or self-care (01) | DRG 885 ==
LOC: 3N 13:03
PROVIDERS: ADMIT Psychiatry & Neurology Psychiatry
DX: F33.2 Major depressive disorder, recurrent severe without psychotic features (principal); E44.0 Moderate protein-calorie malnutrition; I48.2 Chronic atrial fibrillation; G30.9 Alzheimer's disease, unspecified; F02.80 Dementia in other diseases classified elsewhere, unspecified severity, without behavioral disturbance, psychotic disturbance, mood disturbance, and anxiety; E78.5 Hyperlipidemia, unspecified; E03.9 Hypothyroidism, unspecified; F41.1 Generalized anxiety disorder; N18.3 Chronic kidney disease, stage 3 (moderate); I25.10 Atherosclerotic heart disease of native coronary artery without angina pectoris; M81.0 Age-related osteoporosis without current pathological fracture; I12.9 Hypertensive chronic kidney disease with stage 1 through stage 4 chronic kidney disease, or unspecified chronic kidney disease; Z88.8 Allergy status to other drugs, medicaments and biological substances; Z91.048 Other nonmedicinal substance allergy status; Z95.0 Presence of cardiac pacemaker; Z87.442 Personal history of urinary calculi; Z87.440 Personal history of urinary (tract) infections; Z90.710 Acquired absence of both cervix and uterus; Z98.1 Arthrodesis status; Z72.89 Other problems related to lifestyle; Z81.1 Family history of alcohol abuse and dependence; Z82.49 Family history of ischemic heart disease and other diseases of the circulatory system; Z83.6 Family history of other diseases of the respiratory system; Z79.82 Long term (current) use of aspirin; Z79.899 Other long term (current) drug therapy; Z68.23 Body mass index [BMI] 23.0-23.9, adult

== ENCOUNTER 2017-04-15 13:25 | Emergency (ER) | payer MEDICARE ==
[~2017-04-15] VITALS: Ht 157.4 cm; Wt 61.2 kg
--- NOTE | ~2017-04-15 | EKG ---
[place], [place] ELECTROCARDIOGRAM REPORT NAME: SUZIE HERNANDES UNIT #: [id number] ROOM: DOCTOR: DENISSE HERNANDEZ,SIMON BIRTHDATE: [birth year] DOS: 04/15/2017 TIME: 1352 hours: IMPRESSION: 1. Atrial paced rhythm. 2. Borderline low voltage in the precordial leads. 3. Left ventricular hypertrophy. 4. Nonspecific ST-T changes. 5. First degree atrioventricular block. SIMON SALCEDO MD CM:EKGRPT:ELECTROCARDIOGRAM REPORT 1514 1717 SIMON SALCEDO MD
[~2017-04-15 13:25] MED LIST changes: +EXELON13.3 MG/21 T; +MIRTAZAPINE45 MG PO
[2017-04-15 13:59] LABS: BASO % 0.3 % (0.0-1.0); EOS # 0.1 10*3/uL (0.0-0.4); EOS % 0.6 % (1.0-4.0); HEMATOCRIT 42.2 % (37.0-47.0); HEMOGLOBIN 13.9 g/dl (12.0-16.0); LYMPH % 8.2 % (27.0-41.0); MEAN CELL VOLUME 91.1 fl (81.0-99.0); MEAN CORPUSCULAR HGB CONC 32.9 g/dl (33.0-37.0); MEAN PLATELET VOLUME 9.4 fl (9.6-12.3); NEUT # 10.2 10*3/uL (2.3-7.9); NEUT % 82.4 % (47.0-73.0); PLATELET COUNT AUTOMATED 323 10*3/uL (130-400); RED BLOOD COUNT 4.63 10*6/uL (4.10-5.10); RED CELL DISTRI WIDTH 15.9 % (0-14.5); WHITE BLOOD COUNT 12.4 10*3/uL (4.8-10.8)
[2017-04-15 14:08] LABS: ACT PARTIAL THROMBO TIME 25.4 SECONDS (20.8-31.5); INTERNATIONAL NORM RATIO 1.1 (2.0-3.5)
[2017-04-15 14:17] LABS: ALBUMIN 3.2 gm/dl (3.1-4.5); ALKALINE PHOSPHATASE 145 U/L (45-117); BUN 18 mg/dl (7-24); CHLORIDE 108 mmol/L (98-107); CREATININE 1.09 mg/dL (0.55-1.02); LIPASE 186 U/L (73-393); POTASSIUM 3.7 mmol/L (3.5-5.1); SGOT/AST 42 IU/L (3-35); SGPT/ALT 74 U/L (12-78); SODIUM 143 mmol/L (136-145); TOTAL PROTEIN 7.4 gm/dL (6.4-8.2)
[2017-04-15 14:34] LABS: TROPONIN I < 0.015 ng/ml (<0.045)
[2017-04-15 14:51] VITALS: BP 128/58
[2017-04-15 14:59] LABS: BILIRUBIN NEGATIVE (NEGATIVE); BLOOD NEGATIVE (NEGATIVE); CLARITY SL CLOUDY (CLEAR); COLOR YELLOW (YELLOW); GLUCOSE NEGATIVE (NEGATIVE); KETONE TRACE (NEGATIVE); LEUKO ESTERASE NEGATIVE (NEGATIVE); NITRITE NEGATIVE (NEGATIVE); PH 5.5 (5.0-9.0); SPECIFIC GRAVITY >= 1.030 (1.005-1.030); UROBILINOGEN 0.2 E.U./dl (0.2-1.0)
[2017-04-15 15:10] LABS: EPITHELIAL CELLS TNTC
[2017-04-15 15:11] LABS: BACTERIA 1+; CALCIUM OXALATE CRYSTALS 2+; MUCOUS 2+
[2017-04-15] MEDS ORDERED: MIRALAX POWDER17 G1 PO (15:25)
== END 2017-04-15 16:11 | disposition home or self-care (01) ==
LOC: ED 13:25
PROVIDERS: Emergency Medicine
DX: K59.00 Constipation, unspecified (principal); G30.9 Alzheimer's disease, unspecified; F02.80 Dementia in other diseases classified elsewhere, unspecified severity, without behavioral disturbance, psychotic disturbance, mood disturbance, and anxiety; I48.91 Unspecified atrial fibrillation; I12.9 Hypertensive chronic kidney disease with stage 1 through stage 4 chronic kidney disease, or unspecified chronic kidney disease; I25.10 Atherosclerotic heart disease of native coronary artery without angina pectoris; N18.3 Chronic kidney disease, stage 3 (moderate); Z98.890 Other specified postprocedural states; Z90.710 Acquired absence of both cervix and uterus; Z87.442 Personal history of urinary calculi; Z95.0 Presence of cardiac pacemaker; Z90.89 Acquired absence of other organs; Z79.899 Other long term (current) drug therapy; Z79.82 Long term (current) use of aspirin; Z88.8 Allergy status to other drugs, medicaments and biological substances; Z88.6 Allergy status to analgesic agent

== ENCOUNTER 2017-04-28 09:58 | Emergency (ER) | payer MEDICARE ==
[~2017-04-28] VITALS: Ht 160 cm; Wt 52.2 kg
[~2017-04-28 09:58] MED LIST changes: +MIRALAX POWDER17 G1 PO
[2017-04-28 10:17] VITALS: BP 113/64
[2017-04-28 10:49] LABS: BASO % 0.5 % (0.0-1.0); EOS # 0.6 10*3/uL (0.0-0.4); EOS % 7.8 % (1.0-4.0); HEMATOCRIT 36.9 % (37.0-47.0); HEMOGLOBIN 12.2 g/dl (12.0-16.0); LYMPH # 1.1 10*3/uL (1.3-4.4); LYMPH % 14.9 % (27.0-41.0); MEAN CELL VOLUME 90.4 fl (81.0-99.0); MEAN CORPUSCULAR HGB 29.9 pg (27.0-31.0); MEAN CORPUSCULAR HGB CONC 33.1 g/dl (33.0-37.0); MEAN PLATELET VOLUME 8.8 fl (9.6-12.3); MONO # 0.5 10*3/uL (0.1-1.0); MONO % 6.8 % (3.0-9.0); NEUT # 5.3 10*3/uL (2.3-7.9); NEUT % 69.1 % (47.0-73.0); PLATELET COUNT AUTOMATED 304 10*3/uL (130-400); RED BLOOD COUNT 4.08 10*6/uL (4.10-5.10); RED CELL DISTRI WIDTH 15.3 % (0-14.5); WHITE BLOOD COUNT 7.7 10*3/uL (4.8-10.8)
[2017-04-28 10:57] LABS: ACT PARTIAL THROMBO TIME 24.8 SECONDS (20.8-31.5); INTERNATIONAL NORM RATIO 1.1 (2.0-3.5)
[2017-04-28 11:06] LABS: ALBUMIN 2.7 gm/dl (3.1-4.5); ALKALINE PHOSPHATASE 104 U/L (45-117); BUN 17 mg/dl (7-24); CHLORIDE 110 mmol/L (98-107); CREATININE 1.23 mg/dL (0.55-1.02); SGOT/AST 54 IU/L (3-35); SGPT/ALT 54 U/L (12-78); SODIUM 142 mmol/L (136-145); TOTAL PROTEIN 6.4 gm/dL (6.4-8.2)
[2017-04-28 11:09] LABS: TROPONIN I < 0.015 ng/ml (<0.045)
[2017-04-28 11:41] LABS: BILIRUBIN NEGATIVE (NEGATIVE); BLOOD NEGATIVE (NEGATIVE); CLARITY CLEAR (CLEAR); COLOR YELLOW (YELLOW); GLUCOSE NEGATIVE (NEGATIVE); KETONE NEGATIVE (NEGATIVE); LEUKO ESTERASE NEGATIVE (NEGATIVE); NITRITE NEGATIVE (NEGATIVE); PH 6.5 (5.0-9.0); UROBILINOGEN 0.2 E.U./dl (0.2-1.0)
[2017-04-28 11:52] LABS: MUCOUS TRACE; WBC 0-2 wbc/hpf (0-5)
== END 2017-04-28 12:47 ==
LOC: ED 09:58
PROVIDERS: Emergency Medicine
DX: Z13.89 Encounter for screening for other disorder (principal); I10 Essential (primary) hypertension; I12.9 Hypertensive chronic kidney disease with stage 1 through stage 4 chronic kidney disease, or unspecified chronic kidney disease; N18.3 Chronic kidney disease, stage 3 (moderate); I48.2 Chronic atrial fibrillation; F03.90 Unspecified dementia, unspecified severity, without behavioral disturbance, psychotic disturbance, mood disturbance, and anxiety; Z88.8 Allergy status to other drugs, medicaments and biological substances; Z88.6 Allergy status to analgesic agent; Z79.899 Other long term (current) drug therapy

== ENCOUNTER 2017-07-12 10:01 | Emergency (ER) | payer MEDICARE ==
[~2017-07-12] VITALS: Wt 63.0 kg
[2017-07-12] MEDS ORDERED: ASPIRIN81 M1 PO (10:19)
[2017-07-12] MEDS ORDERED: CALCIUM + VITA1 EAC2 PO (10:19)
[2017-07-12] MEDS ORDERED: FISH OIL 1,2001 EACH PO (10:20)
[2017-07-12] MEDS ORDERED: Diltiazem180 MG PO (10:20)
[2017-07-12] MEDS ORDERED: CEROVITE SENIO1 EACH PO (10:20)
[2017-07-12] MEDS ORDERED: LEVO-T25 MCG PO (10:22)
[2017-07-12] MEDS ORDERED: NATURE'S BLEND F1 MG PO (10:22)
[2017-07-12] MEDS ORDERED: NAMENDA10 MG PO (10:23)
[2017-07-12] MEDS ORDERED: COZAAR25 M1 PO (10:23)
[2017-07-12] MEDS ORDERED: METOPROLOL SUCC50 M1 PO (10:23)
[2017-07-12] MEDS ORDERED: VITAMIN D-32000 UNIT PO (10:24)
[2017-07-12] MEDS ORDERED: VESICARE5 MG PO (10:24)
[2017-07-12] MEDS ORDERED: MIRTAZAPINE45 MG PO (10:24)
[2017-07-12] MEDS ORDERED: VALU-DRYL ALLER25 MG PO (10:25)
[2017-07-12] MEDS ORDERED: ACETAMINOPHEN325 M2 PO (10:25)
[2017-07-12] MEDS ORDERED: LORAZEPAM0.5 MG PO (10:26)
[2017-07-12] MEDS ORDERED: ULTRAM50 MG PO (10:26)
[2017-07-12 10:45] LABS: BASO % 0.6 % (0.0-1.0); EOS # 0.3 10*3/uL (0.0-0.4); EOS % 4.7 % (1.0-4.0); HEMATOCRIT 43.3 % (37.0-47.0); HEMOGLOBIN 13.9 g/dl (12.0-16.0); LYMPH # 1.6 10*3/uL (1.3-4.4); LYMPH % 24.8 % (27.0-41.0); MEAN CELL VOLUME 90.6 fl (81.0-99.0); MEAN CORPUSCULAR HGB 29.1 pg (27.0-31.0); MEAN CORPUSCULAR HGB CONC 32.1 g/dl (33.0-37.0); MEAN PLATELET VOLUME 9.3 fl (9.6-12.3); MONO # 0.6 10*3/uL (0.1-1.0); MONO % 9.3 % (3.0-9.0); NEUT # 3.8 10*3/uL (2.3-7.9); NEUT % 60.3 % (47.0-73.0); PLATELET COUNT AUTOMATED 211 10*3/uL (130-400); RED BLOOD COUNT 4.78 10*6/uL (4.10-5.10); RED CELL DISTRI WIDTH 14.9 % (0-14.5); WHITE BLOOD COUNT 6.3 10*3/uL (4.8-10.8)
[2017-07-12 11:02] LABS: ALBUMIN 3.4 gm/dl (3.1-4.5); ALKALINE PHOSPHATASE 91 U/L (45-117); BUN 28 mg/dl (7-24); CHLORIDE 106 mmol/L (98-107); CREATININE 1.36 mg/dL (0.55-1.02); POTASSIUM 4.3 mmol/L (3.5-5.1); SGOT/AST 25 IU/L (3-35); SGPT/ALT 23 U/L (12-78); SODIUM 142 mmol/L (136-145); TOTAL PROTEIN 6.7 gm/dL (6.4-8.2); TROPONIN I < 0.015 ng/ml (<0.045)
[2017-07-12 11:02] LABS: BILIRUBIN NEGATIVE (NEGATIVE); BLOOD NEGATIVE (NEGATIVE); CLARITY SL CLOUDY (CLEAR); COLOR YELLOW (YELLOW); GLUCOSE NEGATIVE (NEGATIVE); KETONE NEGATIVE (NEGATIVE); LEUKO ESTERASE NEGATIVE (NEGATIVE); NITRITE NEGATIVE (NEGATIVE); SPECIFIC GRAVITY 1.015 (1.005-1.030); UROBILINOGEN 0.2 E.U./dl (0.2-1.0)
[2017-07-12 12:48] VITALS: BP 146/80
== END 2017-07-12 13:08 ==
LOC: ED 10:01
PROVIDERS: Emergency Medicine
DX: R55 Syncope and collapse (principal); I10 Essential (primary) hypertension; I48.91 Unspecified atrial fibrillation; F03.90 Unspecified dementia, unspecified severity, without behavioral disturbance, psychotic disturbance, mood disturbance, and anxiety; F41.1 Generalized anxiety disorder; Z79.82 Long term (current) use of aspirin; Z90.710 Acquired absence of both cervix and uterus; Z79.899 Other long term (current) drug therapy; Z88.6 Allergy status to analgesic agent; Z88.8 Allergy status to other drugs, medicaments and biological substances

== ENCOUNTER → 2017-07-19 | Outpatient (CLI) | payer MEDICARE ==
[~2017-07-19] MED LIST changes: +ASPIRIN81 M1 PO; +CALCIUM + VITA1 EAC2 PO; +CEROVITE SENIO1 EACH PO; +COZAAR25 M1 PO; +Diltiazem180 MG PO; +FISH OIL 1,2001 EACH PO; +LEVO-T25 MCG PO; +LORAZEPAM0.5 MG PO; +METOPROLOL SUCC50 M1 PO; +NAMENDA10 MG PO; +ULTRAM50 MG PO; +VALU-DRYL ALLER25 MG PO; +VITAMIN D-32000 UNIT PO
== END | disposition home or self-care (01) ==
LOC: CARD 15:50
DX: R55 Syncope and collapse (principal)

== ENCOUNTER 2017-10-27 21:15 | Emergency (ER) | payer MEDICARE ==
[~2017-10-27] VITALS: Ht 165.1 cm; Wt 90.7 kg
[2017-10-27 21:54] LABS: BASO % 0.5 % (0.0-1.0); EOS # 0.1 10*3/uL (0.0-0.4); EOS % 0.8 % (1.0-4.0); HEMATOCRIT 44.9 % (37.0-47.0); HEMOGLOBIN 14.8 g/dl (12.0-16.0); LYMPH # 1.2 10*3/uL (1.3-4.4); LYMPH % 14.1 % (27.0-41.0); MEAN CELL VOLUME 88.2 fl (81.0-99.0); MEAN CORPUSCULAR HGB 29.1 pg (27.0-31.0); MEAN PLATELET VOLUME 8.9 fl (9.6-12.3); MONO # 0.4 10*3/uL (0.1-1.0); MONO % 4.8 % (3.0-9.0); NEUT # 6.9 10*3/uL (2.3-7.9); NEUT % 79.5 % (47.0-73.0); PLATELET COUNT AUTOMATED 210 10*3/uL (130-400); RED BLOOD COUNT 5.09 10*6/uL (4.10-5.10); WHITE BLOOD COUNT 8.7 10*3/uL (4.8-10.8)
[2017-10-27 22:04] LABS: ACT PARTIAL THROMBO TIME 24.3 SECONDS (20.8-31.5)
[2017-10-27 22:08] LABS: ALBUMIN 4.1 gm/dl (3.1-4.5); ALKALINE PHOSPHATASE 97 U/L (45-117); BUN 24 mg/dl (7-24); CHLORIDE 106 mmol/L (98-107); CKMB 1.3 ng/ml (0.5-3.6); CPK 91 U/L (26-192); CREATININE 1.17 mg/dL (0.55-1.02); LIPASE 208 U/L (73-393); POTASSIUM 3.6 mmol/L (3.5-5.1); SGOT/AST 18 IU/L (3-35); SGPT/ALT 21 U/L (12-78); SODIUM 139 mmol/L (136-145); TOTAL PROTEIN 7.7 gm/dL (6.4-8.2); TROPONIN I < 0.015 ng/ml (<0.045)
[2017-10-27 22:12] LABS: BILIRUBIN NEGATIVE (NEGATIVE); BLOOD NEGATIVE (NEGATIVE); CLARITY CLEAR (CLEAR); COLOR YELLOW (YELLOW); GLUCOSE NEGATIVE (NEGATIVE); KETONE NEGATIVE (NEGATIVE); LEUKO ESTERASE NEGATIVE (NEGATIVE); NITRITE NEGATIVE (NEGATIVE); PH 7.5 (5.0-9.0); UROBILINOGEN 0.2 E.U./dl (0.2-1.0)
[2017-10-27 22:15] LABS: RBC 0-2 rbc/hpf (0-2); WBC 0-2 wbc/hpf (0-5)
[2017-10-27 22:50] VITALS: BP 146/69
[2017-10-27] MEDS ORDERED: ZOFRAN ODT4 MG SL (23:34)
== END 2017-10-28 02:48 | disposition home or self-care (01) ==
LOC: ED 21:15
PROVIDERS: Emergency Medicine
DX: K52.9 Noninfective gastroenteritis and colitis, unspecified (principal); I48.91 Unspecified atrial fibrillation; I12.9 Hypertensive chronic kidney disease with stage 1 through stage 4 chronic kidney disease, or unspecified chronic kidney disease; N18.3 Chronic kidney disease, stage 3 (moderate); Z90.710 Acquired absence of both cervix and uterus; Z90.89 Acquired absence of other organs; Z98.890 Other specified postprocedural states; Z87.442 Personal history of urinary calculi; Z95.0 Presence of cardiac pacemaker; Z79.899 Other long term (current) drug therapy; Z88.8 Allergy status to other drugs, medicaments and biological substances; Z88.6 Allergy status to analgesic agent

== ENCOUNTER 2017-12-13 12:23 | Inpatient (IN) | payer MEDICARE ==
[~2017-12-13] VITALS: Ht 165.1 cm; Wt 79.4 kg
[2017-12-13 12:24] VITALS: BP 133/88
[2017-12-13 13:22] LABS: BASO # 0.1 10*3/uL (0.0-0.1); BASO % 0.7 % (0.0-1.0); EOS # 0.3 10*3/uL (0.0-0.4); EOS % 4.7 % (1.0-4.0); HEMATOCRIT 39.8 % (37.0-47.0); HEMOGLOBIN 12.9 g/dl (12.0-16.0); LYMPH # 2.2 10*3/uL (1.3-4.4); LYMPH % 30.4 % (27.0-41.0); MEAN CORPUSCULAR HGB 28.9 pg (27.0-31.0); MEAN CORPUSCULAR HGB CONC 32.4 g/dl (33.0-37.0); MEAN PLATELET VOLUME 9.2 fl (9.6-12.3); MONO # 0.7 10*3/uL (0.1-1.0); MONO % 9.8 % (3.0-9.0); NEUT % 54.3 % (47.0-73.0); PLATELET COUNT AUTOMATED 204 10*3/uL (130-400); RED BLOOD COUNT 4.47 10*6/uL (4.10-5.10); WHITE BLOOD COUNT 7.3 10*3/uL (4.8-10.8)
[2017-12-13 13:38] LABS: ALBUMIN 3.2 gm/dl (3.1-4.5); CREATININE 1.19 mg/dL (0.55-1.02); POTASSIUM 4.5 mmol/L (3.5-5.1); TOTAL PROTEIN 6.3 gm/dL (6.4-8.2)
[2017-12-13 14:25] LABS: BILIRUBIN NEGATIVE (NEGATIVE); BLOOD NEGATIVE (NEGATIVE); CLARITY CLEAR (CLEAR); COLOR YELLOW (YELLOW); GLUCOSE NEGATIVE (NEGATIVE); KETONE TRACE (NEGATIVE); LEUKO ESTERASE 1+ (NEGATIVE); NITRITE NEGATIVE (NEGATIVE); PH 5.5 (5.0-9.0); SPECIFIC GRAVITY 1.025 (1.005-1.030); UROBILINOGEN 0.2 E.U./dl (0.2-1.0)
[2017-12-13 14:26] VITALS: BP 111/79
[2017-12-13 14:48] LABS: BACTERIA 1+; EPITHELIAL CELLS 0-2; WBC 31-40 wbc/hpf (0-5)
[2017-12-13] MEDS ORDERED: LEVOTHYROXINE50 MCG PO (15:57)
[2017-12-13] MEDS ORDERED: RIVASTIGMINE TAR3 M1 PO (15:58)
[2017-12-13 16:30] VITALS: BP 131/76
[2017-12-13 16:34] VITALS: BP 116/71
[2017-12-13] MEDS ORDERED: NATURE'S BLEND F1 MG PO (17:43)
[2017-12-13] MEDS ORDERED: CALCIUM 600+D1 EACH PO (17:44)
[2017-12-13] MEDS ORDERED: VITAMIN D22000 UNIT PO (17:45)
[2017-12-13] MEDS ORDERED: VITAMIN E400 UNI3 PO (17:46)
[2017-12-13] MEDS ORDERED: CEROVITE SENIO1 EACH PO (17:47)
[2017-12-13] MEDS ORDERED: FISH OIL 1,2001 EAC5 PO (17:49)
[2017-12-13] MEDS ORDERED: ATIVAN0.5 MG PO (17:49)
[2017-12-13] MEDS ORDERED: TRAMADOL HCL50 MG PO (17:50)
[2017-12-13] MEDS ORDERED: ZOFRAN ODT4 MG SL (17:51)
[2017-12-13 20:00] VITALS: BP 132/84
[2017-12-14] VITALS: BP 140/98
[2017-12-14 08:00] VITALS: BP 160/90
[2017-12-14 12:00] VITALS: BP 125/70
[2017-12-14 16:00] VITALS: BP 141/74
[2017-12-14 20:00] VITALS: BP 131/92
[2017-12-15] VITALS: BP 122/97
[2017-12-15 06:49] LABS: BASO # 0.1 10*3/uL (0.0-0.1); BASO % 0.7 % (0.0-1.0); EOS # 0.3 10*3/uL (0.0-0.4); EOS % 3.7 % (1.0-4.0); LYMPH # 1.7 10*3/uL (1.3-4.4); LYMPH % 23.3 % (27.0-41.0); MEAN CELL VOLUME 90.7 fl (81.0-99.0); MEAN CORPUSCULAR HGB 28.6 pg (27.0-31.0); MEAN CORPUSCULAR HGB CONC 31.6 g/dl (33.0-37.0); MEAN PLATELET VOLUME 9.6 fl (9.6-12.3); MONO # 0.8 10*3/uL (0.1-1.0); MONO % 11.3 % (3.0-9.0); NEUT # 4.5 10*3/uL (2.3-7.9); NEUT % 60.6 % (47.0-73.0); PLATELET COUNT AUTOMATED 200 10*3/uL (130-400); RED BLOOD COUNT 4.19 10*6/uL (4.10-5.10); RED CELL DISTRI WIDTH 15.1 % (0-14.5); WHITE BLOOD COUNT 7.4 10*3/uL (4.8-10.8)
[2017-12-15 07:06] LABS: CREATININE 1.09 mg/dL (0.55-1.02); POTASSIUM 4.4 mmol/L (3.5-5.1)
[2017-12-15 08:00] VITALS: BP 128/97
[2017-12-15 12:00] VITALS: BP 128/93
[2017-12-15 16:00] VITALS: BP 124/89
[2017-12-15 20:00] VITALS: BP 148/84
[2017-12-16] VITALS: BP 140/99
[2017-12-16] MEDS ORDERED: VITAMIN E200 UNI1 PO (09:48)
[2017-12-16] MEDS ORDERED: DILTIAZEM CD240 MG PO (09:48)
== END 2017-12-16 13:43 | disposition home or self-care (01) | DRG 562 ==
LOC: ED 12:23 → EDHOLD 15:07 → 4E 15:07
PROVIDERS: Internal Medicine
DX: S39.012A Strain of muscle, fascia and tendon of lower back, initial encounter (principal); N17.0 Acute kidney failure with tubular necrosis; E86.0 Dehydration; E87.8 Other disorders of electrolyte and fluid balance, not elsewhere classified; I48.2 Chronic atrial fibrillation; F41.1 Generalized anxiety disorder; F32.9 Major depressive disorder, single episode, unspecified; E03.9 Hypothyroidism, unspecified; N39.0 Urinary tract infection, site not specified; Z66 Do not resuscitate; Z51.5 Encounter for palliative care; N18.3 Chronic kidney disease, stage 3 (moderate); R73.9 Hyperglycemia, unspecified; G30.9 Alzheimer's disease, unspecified; F02.80 Dementia in other diseases classified elsewhere, unspecified severity, without behavioral disturbance, psychotic disturbance, mood disturbance, and anxiety; I12.9 Hypertensive chronic kidney disease with stage 1 through stage 4 chronic kidney disease, or unspecified chronic kidney disease; M43.12 Spondylolisthesis, cervical region; Z95.0 Presence of cardiac pacemaker; Z88.8 Allergy status to other drugs, medicaments and biological substances; Z79.899 Other long term (current) drug therapy; Z79.82 Long term (current) use of aspirin; Z87.442 Personal history of urinary calculi; Z87.440 Personal history of urinary (tract) infections; Z90.710 Acquired absence of both cervix and uterus; Z98.1 Arthrodesis status; Z90.89 Acquired absence of other organs; Z82.49 Family history of ischemic heart disease and other diseases of the circulatory system; Z81.1 Family history of alcohol abuse and dependence; Z83.6 Family history of other diseases of the respiratory system

== ENCOUNTER → 2018-02-28 | Outpatient (CLI) | payer MEDICARE ==
[~2018-02-28] MED LIST changes: +ALBUTEROL2.5 MG/0.5 NEB; +ALLERGY RELIEF25 MG PO; +BROVANA15 MCG/2 M INH; +BROVANA15 MCG/2 M NEB; +CALCIUM 600+D1 EACH PO; +CALCIUM500 M1 PO; +DILTIAZEM CD240 MG PO; +FISH OIL 1,2001 EAC5 PO; +LEVOTHYROXINE50 MCG PO; +LOPRESSOR100 M1 PO; +LOPRESSOR50 M1 PO; +METOPROLOL TART50 M1 PO; +MIRTAZAPINE45 M1 PO; +MULTIVITAMINS1 EAC5 PO; +PULMICORT RESP0.5 MG INH; +PULMICORT RESP0.5 MG NEB; +RIVASTIGMINE TAR3 M1 PO; +Synthroid,Levo25 MCG PO; +VENTOLIN 02.5 MG/3 M INH; +VITAMIN D22000 UNIT PO; +VITAMIN E200 UNI1 PO; +VITAMIN E400 UNI3 PO; +Zofran4 MG SL
== END | disposition home or self-care (01) ==
LOC: RAD 13:29
DX: I51.7 Cardiomegaly (principal); R91.8 Other nonspecific abnormal finding of lung field

== ENCOUNTER 2018-04-04 11:07 | Inpatient (IN) | payer MEDICARE ==
[~2018-04-04] VITALS: Ht 166.6 cm; Wt 71.9 kg
--- NOTE | ~2018-04-04 | EKG ---
[place], [place] ELECTROCARDIOGRAM REPORT NAME: SUZIE HERNANDES UNIT #: [id number] ROOM: 509 DOCTOR: TE DRAFT REPORT BIRTHDATE: [birth year] [facility] Test Date: 2018-04-04 Test Time: 17:21:43 Pat Name: SUZIE HERNANDES Department: Room: 504 Gender: F Information Delivery Analyst: 0012 : 1940 Requested By: VILMA NUGENT Order Number: [id number] Reading MD: Measurements Intervals [place] Rate: 103 P: [place]: QRS: 56 QRSD: 95 T: -42 QT: 375 QTc: 491 Interpretive Statements Atrial fibrillation Borderline low voltage, extremity leads Borderline repolarization abnormality No previous ECG available for comparison CM:EKGRPT:ELECTROCARDIOGRAM REPORT 1721 1424 VILMA DECKER DRAFT REPORT VILMA NUGENT DO
--- NOTE | ~2018-04-04 | CON ---
[place], [place] REPORT OF CONSULTATION [id number] UNIT #: [id number] ROOM: 509 DOCTOR: RUTH HERNANDEZ [facility] BIRTHDATE: [birth year] DOS: 04/05/2018 HISTORY OF PRESENT ILLNESS: The patient came in with chest pain. No evidence of acute coronary syndrome; however, the patient has full of gallstones, got MRCP, awaiting for the report. Troponin is negative. No evidence of acute coronary syndrome. She came to the Emergency Room. No acute changes. Has history of atrial fibrillation. I have seen the patient before. The patient has epigastric and abdominal discomfort and ultrasound is abnormal. MRCP is done, we are waiting for the report. She has history of atrial fibrillation, hypertensive cardiovascular disease, and history of hypothyroidism. The patient had a cardiac catheterization done before. The patient has a cardiac defibrillator with a permanent pacemaker. Echocardiogram is pending for Tuesday after and I will review that in case if they need to do a gallbladder surgery and I want to make sure the systolic ejection fraction is fairly good prior to her surgery. In any event if surgery must need to be done, I will standby if any issues with the cardiovascular status and I will be more than happy to take care of her. The patient is on diltiazem for heart rate control, lisinopril 40 mg daily, baby aspirin daily, and levothyroxine for thyroid supplement. The patient also is on metoprolol 100 mg twice a day. Blood pressure has been stable. PHYSICAL EXAMINATION: VITAL SIGNS: Stable. GENERAL: No significant edema. NECK: Supple. No jugular venous distention. LUNGS: No rales heard. HEART: S1 and S2 regular, 1-2/6 systolic murmur. ABDOMEN: Soft. VITAL SIGNS: Blood pressure 118/78, pulse ox is 97 and afebrile, pulse is 80. NEUROLOGICAL: No focal neurological deficit. RECTAL AND GENITAL: Deferred, unrelated. PLAN: I will review the echo. If systolic ejection fraction is greater than 40-45%, the patient should be able to do fairly well, but I will standby. Thank you very much for asking me to see the patient. We will follow the patient. GEO MIRANDA MD CM:CONSTR:REPORT OF CONSULTATION 2041 04/21/18 0757 interface
--- NOTE | ~2018-04-04 | PR ---
[place], [place] PROGRESS NOTE NAME: SUZIE HERNANDES UNIT #: [id number] ROOM: 509 DOCTOR: CHELSEY OLIVER MD BIRTHDATE: [birth year] DOS: 04/06/2018 I am seeing on behalf of Dr. Chacon. SUBJECTIVE: The patient's condition appears to be the same. She was seen by Dr. Raphael yesterday. The patient cardiac status appears to be stable. The patient remains confused, pleasantly, but arousable, answers knows only her name. OBJECTIVE: VITAL SIGNS: Blood pressure today is 130/70, atrial fibrillation, controlled ventricular response. GENERAL: Awake, cooperative, arousable. HEENT: Unremarkable. NECK: Supple, no JVD. LUNGS: Normal breath sounds. EXTREMITIES: Intact pulses. ABDOMEN: Soft, no tenderness, no guarding. LABORATORY DATA: Sodium 141, potassium of 3, which was supplemented. Creatinine is 0.9. Troponins are all negative. TSH is 0.31. Liver functions are not elevated. Ultrasound of the gallbladder is negative, no cholelithiasis, gallbladder thickening or dilatation. IMPRESSION: Atypical chest discomfort. Cardiac enzymes are all negative, epigastric abdominal, atrial fibrillation, persistent, hypothyroidism, and biliary colic. RECOMMENDATIONS: Continue the present medications. PLAN: As ordered by Dr. Raphael. Dr. Raphael has to review the echocardiogram. Continue the present medications, which include the metoprolol 100 b.i.d. and inhalers as ordered. The patient is already on Lovenox, Namenda, and baby aspirin. The patient is a fall risk and confusion, not anticoagulated for that reason. We will follow up. [place], [place] PROGRESS NOTE NAME: SUZIE HERNANDES UNIT #: [id number] ROOM: 509 DOCTOR: CHELSEY OLIVER MD BIRTHDATE: [birth year] CHELSEY OLIVER MD CM:PNTRANS [id number] CHELSEY OLIVER MD 04/19/18 0854 interface
--- NOTE | ~2018-04-04 | EKG ---
[place], [place] ELECTROCARDIOGRAM REPORT NAME: SUZIE HERNANDES UNIT #: [id number] ROOM: 509 DOCTOR: TE DRAFT REPORT BIRTHDATE: [birth year] [facility] Test Date: 2018-04-04 Test Time: 15:02:19 Pat Name: SUZIE HERNANDES Department: Room: 504 Gender: F Office Nurse: : 1940 Requested By: VILMA NUGENT Order Number: [id number] Reading MD: Measurements Intervals [place] Rate: 93 P: [place]: QRS: 101 QRSD: 90 T: -44 QT: 387 QTc: 482 Interpretive Statements Afib/flut and V-paced complexes No further rhythm analysis attempted due to paced rhythm Right axis deviation Low voltage, extremity leads Nonspecific T abnormalities, inferior leads Minimal ST elevation, lateral leads No previous ECG available for comparison CM:EKGRPT:ELECTROCARDIOGRAM REPORT 1502 1204 VILMA DECKER DRAFT REPORT VILMA NUGENT DO
--- NOTE | ~2018-04-04 | EKG ---
[place], [place] ELECTROCARDIOGRAM REPORT NAME: SUZIE HERNANDES UNIT #: [id number] ROOM: 509 DOCTOR: TE DRAFT REPORT BIRTHDATE: [birth year] [facility] Test Date: 2018-04-04 Test Time: 11:19:54 Pat Name: SUZIE PEACOCK Department: Room: Gender: F Staffing Recruiter: : 1940 Requested By: VILMA NUGENT Order Number: [id number] Reading MD: Measurements Intervals [place] Rate: 88 P: [place]: QRS: 112 QRSD: 93 T: -46 QT: 353 QTc: 427 Interpretive Statements Atrial fibrillation Probable anterior infarct, age indeterminate No previous ECG available for comparison CM:EKGRPT:ELECTROCARDIOGRAM REPORT 1119 0822 VILMA DECKER DRAFT REPORT VILMA NUGENT DO
[~2018-04-04 11:07] MED LIST changes: -ALBUTEROL2.5 MG/0.5 NEB; -BROVANA15 MCG/2 M NEB; -LOPRESSOR50 M1 PO; -MIRTAZAPINE45 M1 PO; -MULTIVITAMINS1 EAC5 PO; -PULMICORT RESP0.5 MG NEB
[2018-04-04 11:15] VITALS: BP 126/89
[2018-04-04 11:32] LABS: BASO % 0.5 % (0.0-1.0); EOS # 0.1 10*3/uL (0.0-0.4); EOS % 1.1 % (1.0-4.0); HEMATOCRIT 43.8 % (37.0-47.0); HEMOGLOBIN 13.7 g/dl (12.0-16.0); LYMPH # 1.3 10*3/uL (1.3-4.4); LYMPH % 17.1 % (27.0-41.0); MEAN CELL VOLUME 80.2 fl (81.0-99.0); MEAN CORPUSCULAR HGB 25.1 pg (27.0-31.0); MEAN CORPUSCULAR HGB CONC 31.3 g/dl (33.0-37.0); MEAN PLATELET VOLUME 9.5 fl (9.6-12.3); MONO # 0.7 10*3/uL (0.1-1.0); MONO % 9.4 % (3.0-9.0); NEUT # 5.4 10*3/uL (2.3-7.9); NEUT % 71.6 % (47.0-73.0); PLATELET COUNT AUTOMATED 172 10*3/uL (130-400); RED BLOOD COUNT 5.46 10*6/uL (4.10-5.10); RED CELL DISTRI WIDTH 20.1 % (0-14.5); WHITE BLOOD COUNT 7.5 10*3/uL (4.8-10.8)
[2018-04-04 11:40] LABS: INTERNATIONAL NORM RATIO 1.3 (2.0-3.5)
[2018-04-04 11:50] LABS: ALBUMIN 3.1 gm/dl (3.1-4.5); ALKALINE PHOSPHATASE 85 U/L (45-117); BUN 14 mg/dl (7-24); CHLORIDE 111 mmol/L (98-107); CREATININE 1.11 mg/dL (0.55-1.02); POTASSIUM 3.5 mmol/L (3.5-5.1); SGOT/AST 22 IU/L (3-35); SGPT/ALT 19 U/L (12-78); SODIUM 145 mmol/L (136-145); TOTAL PROTEIN 6.6 gm/dL (6.4-8.2)
[2018-04-04 11:56] LABS: TROPONIN I < 0.015 ng/ml (<0.045)
[2018-04-04 13:55] VITALS: BP 118/78
[2018-04-04 14:30] VITALS: BP 134/99
[2018-04-04] MEDS ORDERED: CALCIUM + VITA1 EAC2 PO (14:41)
[2018-04-04] MEDS ORDERED: ASPIRIN ADULT L81 M1 PO (14:41)
[2018-04-04] MEDS ORDERED: MULTIVITAMINS1 EAC5 PO (14:43)
[2018-04-04] MEDS ORDERED: DILTIAZEM CD240 MG PO (14:43)
[2018-04-04] MEDS ORDERED: FISH OIL 1,2001 EACH PO (14:43)
[2018-04-04] MEDS ORDERED: LEVOTHYROXINE50 MCG PO (14:44)
[2018-04-04] MEDS ORDERED: NATURE'S BLEND F1 MG PO (14:44)
[2018-04-04] MEDS ORDERED: LOPRESSOR50 M1 PO (14:45)
[2018-04-04] MEDS ORDERED: NAMENDA10 MG PO (14:45)
[2018-04-04] MEDS ORDERED: VESICARE5 MG PO (14:46)
[2018-04-04] MEDS ORDERED: VITAMIN D22000 UNIT PO (14:46)
[2018-04-04] MEDS ORDERED: RIVASTIGMINE TAR3 M1 PO (14:46)
[2018-04-04] MEDS ORDERED: MIRTAZAPINE45 M1 PO (14:46)
[2018-04-04] MEDS ORDERED: VITAMIN E200 UNI1 PO (14:47)
[2018-04-04] MEDS ORDERED: BENADRYL ALLERG25 M5 PO (14:48)
[2018-04-04] MEDS ORDERED: Zofran4 MG SL (14:48)
[2018-04-04] MEDS ORDERED: ATIVAN0.5 MG PO (14:48)
[2018-04-04] MEDS ORDERED: TRAMADOL HCL50 MG PO (14:49)
[2018-04-04 16:00] VITALS: BP 137/87
[2018-04-05] VITALS: BP 136/81
[2018-04-05 06:41] LABS: BASO % 0.4 % (0.0-1.0); EOS % 0.3 % (1.0-4.0); HEMATOCRIT 41.3 % (37.0-47.0); HEMOGLOBIN 13.3 g/dl (12.0-16.0); LYMPH # 1.4 10*3/uL (1.3-4.4); LYMPH % 14.8 % (27.0-41.0); MEAN CELL VOLUME 77.9 fl (81.0-99.0); MEAN CORPUSCULAR HGB 25.1 pg (27.0-31.0); MEAN CORPUSCULAR HGB CONC 32.2 g/dl (33.0-37.0); MEAN PLATELET VOLUME 10.4 fl (9.6-12.3); MONO # 1.1 10*3/uL (0.1-1.0); MONO % 11.6 % (3.0-9.0); NEUT # 6.6 10*3/uL (2.3-7.9); NEUT % 72.5 % (47.0-73.0); PLATELET COUNT AUTOMATED 182 10*3/uL (130-400); RED CELL DISTRI WIDTH 19.8 % (0-14.5); WHITE BLOOD COUNT 9.2 10*3/uL (4.8-10.8)
[2018-04-05 07:05] LABS: BUN 12 mg/dl (7-24); CHLORIDE 104 mmol/L (98-107); CHOLESTEROL 107 mg/dL (<200); CREATININE 0.91 mg/dL (0.55-1.02); PHOSPHOROUS 3.8 mg/dL (2.5-4.9); SGOT/AST 21 IU/L (3-35); SGPT/ALT 17 U/L (12-78); SODIUM 141 mmol/L (136-145); TRIGLYCERIDES 63 mg/dl (<150); VLDL CHOLESTEROL 13 mg/dL (6-40)
[2018-04-05 07:12] LABS: ALKALINE PHOSPHATASE 80 U/L (45-117); FREE T4 1.64 ng/dl (0.76-1.46); HDL CHOLESTEROL 36 mg/dl (40-60); LDL CHOLESTEROL 58 mg/dL (9-159); THYROID STIM HORMONE (HS) 0.331 uIU/ml (0.358-4.75); TOTAL PROTEIN 6.1 gm/dL (6.4-8.2)
[2018-04-05 08:00] VITALS: BP 134/71; BP 138/78
[2018-04-05 08:05] LABS: VITAMIN D, 25-HYDROXY 71.6 ng/mL (30-100)
[2018-04-05 12:00] VITALS: BP 141/69
[2018-04-05] MEDS ORDERED: ATIVAN0.5 MG PO (15:29)
[2018-04-05] MEDS ORDERED: ALBUTEROL2.5 MG/0.5 NEB (15:30)
[2018-04-05] MEDS ORDERED: BROVANA15 MCG/2 M NEB (15:31)
[2018-04-05] MEDS ORDERED: PULMICORT RESP0.5 MG NEB (15:31)
[2018-04-05] MEDS ORDERED: CEROVITE SENIO1 EACH PO (15:37)
[2018-04-05 16:00] VITALS: BP 152/68
[2018-04-05 20:00] VITALS: BP 116/59
[2018-04-06] VITALS: BP 135/76
[2018-04-06 04:00] VITALS: BP 117/70
[2018-04-06 08:00] VITALS: BP 138/78
[2018-04-06 12:00] VITALS: BP 112/63
[2018-04-06 14:26] LABS: BILIRUBIN 2+ (NEGATIVE); BLOOD NEGATIVE (NEGATIVE); CLARITY SL CLOUDY (CLEAR); COLOR YELLOW (YELLOW); GLUCOSE NEGATIVE (NEGATIVE); KETONE TRACE (NEGATIVE); LEUKO ESTERASE NEGATIVE (NEGATIVE); NITRITE POSITIVE (NEGATIVE); SPECIFIC GRAVITY >= 1.030 (1.005-1.030)
[2018-04-06 14:38] LABS: BACTERIA 2+; MUCOUS 3+
[2018-04-06 14:40] LABS: WBC 16-20 wbc/hpf (0-5)
[2018-04-06 16:00] VITALS: BP 99/59
[2018-04-06 20:00] VITALS: BP 133/68
[2018-04-07] VITALS: BP 118/96
[2018-04-07 07:03] LABS: BUN 17 mg/dl (7-24); CHLORIDE 107 mmol/L (98-107); CREATININE 0.91 mg/dL (0.55-1.02); POTASSIUM 3.3 mmol/L (3.5-5.1); SODIUM 141 mmol/L (136-145)
[2018-04-07 08:00] VITALS: BP 136/58
[2018-04-07 12:00] VITALS: BP 117/70
[2018-04-07 16:00] VITALS: BP 113/72
== END 2018-04-07 16:25 | disposition home or self-care (01) | DRG 445 ==
LOC: ED 11:07 → 5E 13:53 → EDHOLD 13:53 → 5E 13:53
PROVIDERS: Emergency Medicine; Registered Nurse; Student in an Organized Health Care Education/Training Program
DX: K80.50 Calculus of bile duct without cholangitis or cholecystitis without obstruction (principal); E44.0 Moderate protein-calorie malnutrition; I48.1 Persistent atrial fibrillation; K21.9 Gastro-esophageal reflux disease without esophagitis; F41.1 Generalized anxiety disorder; E03.9 Hypothyroidism, unspecified; I11.9 Hypertensive heart disease without heart failure; F03.90 Unspecified dementia, unspecified severity, without behavioral disturbance, psychotic disturbance, mood disturbance, and anxiety; Z96.653 Presence of artificial knee joint, bilateral; Z88.6 Allergy status to analgesic agent; Z88.8 Allergy status to other drugs, medicaments and biological substances; Z90.710 Acquired absence of both cervix and uterus; Z95.810 Presence of automatic (implantable) cardiac defibrillator; Z79.82 Long term (current) use of aspirin; Z79.899 Other long term (current) drug therapy; Z68.26 Body mass index [BMI] 26.0-26.9, adult

== ENCOUNTER 2018-11-15 20:44 | Inpatient (IN) | payer MEDICARE ==
[~2018-11-15] VITALS: Ht 157.4 cm; Wt 47.3 kg
--- NOTE | ~2018-11-15 | EKG ---
[place], [place] ELECTROCARDIOGRAM REPORT NAME: SUZIE HERNANDES UNIT #: [id number] ROOM: 408 DOCTOR: TE DRAFT REPORT BIRTHDATE: [birth year] [facility] Test Date: 2018-11-15 Test Time: 22:03:05 Pat Name: SUZIE HERNANDES Department: Room: 408 Gender: F Caustic Loader: Coral Mercer : 1940 Requested By: SHIRA AMARO Order Number: [id number] Reading MD: Meryl Mercer MD Measurements Intervals [place] Rate: 76 P: [place]: QRS: 109 QRSD: 94 T: -70 QT: 404 QTc: 455 Interpretive Statements Afib/flut and V-paced complexes No further rhythm analysis attempted due to paced rhythm Right axis deviation Nonspecific repol abnormality, diffuse leads Compared to ECG 10/26/2018 02:07:31 Right-axis deviation now present Prolonged QT interval no longer present Electronically Signed On 11-17-2018 9:11:05 PDT by Meryl Mercer MD CM:EKGRPT:ELECTROCARDIOGRAM REPORT 02 0911 SHIRA AMARO MD EPIPHANY DRAFT REPORT SHIRA AMARO MD
[2018-11-15 20:44] VITALS: BP 147/96
[~2018-11-15 20:44] MED LIST changes: +ALBUTEROL2.5 MG/0.5 NEB; +ASPIRIN CHEWABL81 MG PO; +BROVANA15 MCG/2 M NEB; +DETROL2 MG PO; +DIGOX125 MCG PO; +HYDROXYZINE PAM25 M1 PO; +LOPRESSOR50 M1 PO; +MILK OF MA400 MG/5 M PO; +MIRTAZAPINE15 M2 PO; +MIRTAZAPINE45 M1 PO; +MULTIVITAMINS1 EAC5 PO; +OYSTER SHELL C500 M4 PO; +PROBIOTIC1 EAC1 PO; +PULMICORT RESP0.5 MG NEB; +SEPTDS PO; +Synthroid,Lev100 MCG PO; +VITAMIN D-32000 UNI1 PO
[2018-11-15 22:19] LABS: BASO % 0.6 % (0.0-1.0); EOS # 0.2 10*3/uL (0.0-0.4); EOS % 3.2 % (1.0-4.0); HEMATOCRIT 50.1 % (37.0-47.0); HEMOGLOBIN 16.2 g/dl (12.0-16.0); LYMPH # 1.4 10*3/uL (1.3-4.4); LYMPH % 22.2 % (27.0-41.0); MEAN CELL VOLUME 89.3 fl (81.0-99.0); MEAN CORPUSCULAR HGB 28.9 pg (27.0-31.0); MEAN CORPUSCULAR HGB CONC 32.3 g/dl (33.0-37.0); MEAN PLATELET VOLUME 9.9 fl (9.6-12.3); MONO # 0.4 10*3/uL (0.1-1.0); MONO % 6.5 % (3.0-9.0); NEUT # 4.3 10*3/uL (2.3-7.9); PLATELET COUNT AUTOMATED 208 10*3/uL (130-400); RED BLOOD COUNT 5.61 10*6/uL (4.10-5.10); RED CELL DISTRI WIDTH 19.6 % (0-14.5); WHITE BLOOD COUNT 6.5 10*3/uL (4.8-10.8)
[2018-11-15 22:29] LABS: ACT PARTIAL THROMBO TIME 24.9 SECONDS (20.0-32.1); INTERNATIONAL NORM RATIO 1.2 (2.0-3.5)
[2018-11-15 22:35] LABS: ALBUMIN 3.4 gm/dl (3.1-4.5); ALKALINE PHOSPHATASE 94 U/L (45-117); BUN 17 mg/dl (7-24); CHLORIDE 109 mmol/L (98-107); CREATININE 1.36 mg/dL (0.55-1.02); LIPASE 101 U/L (73-393); SGOT/AST 34 IU/L (3-35); SGPT/ALT 25 U/L (12-78); SODIUM 144 mmol/L (136-145); TOTAL PROTEIN 6.8 gm/dL (6.4-8.2)
[2018-11-15 22:36] LABS: TROPONIN I < 0.015 ng/ml (<0.045)
[2018-11-15 22:47] LABS: BILIRUBIN NEGATIVE (NEGATIVE); BLOOD NEGATIVE (NEGATIVE); CLARITY SL CLOUDY (CLEAR); COLOR YELLOW (YELLOW); GLUCOSE NEGATIVE (NEGATIVE); KETONE TRACE (NEGATIVE); LEUKO ESTERASE NEGATIVE (NEGATIVE); NITRITE NEGATIVE (NEGATIVE); SPECIFIC GRAVITY >= 1.030 (1.005-1.030)
--- NOTE | 2018-11-15 23:08 | NUR ---
DAUGHTER IS AT BEDSIDE. THE PATIENT IS CURRENTLY AWAKE AND ALERT PER HER NORMAL.
[2018-11-15 23:12] LABS: HYALINE CAST 45-50
[2018-11-16 00:15] VITALS: BP 135/82
--- NOTE | 2018-11-16 00:15 | NUR ---
A 78, admitted to 4E, under the services of DARRON Ace DO with a diagnosis of ACUTE RENAL FAILURE, ACUTE METABOLIC ENCEPHALOPATHY. Chief complaint is CHANGE IN MENTAL STATUS. Patient arrived via ambulance from ER. Monitor applied. Initial assessment completed. Vital signs taken and recorded. DARRON ACE DO notified of admission to the unit. Orders received. See assessment for past medical history, medications and allergies. Patient and/or family oriented to unit. visitation policy reviewed. Clothing/patient valuable form completed. VALERIO ELLSWORTH
[2018-11-16 06:30] LABS: BASO % 0.7 % (0.0-1.0); EOS # 0.2 10*3/uL (0.0-0.4); EOS % 2.8 % (1.0-4.0); HEMATOCRIT 46.7 % (37.0-47.0); LYMPH # 2.2 10*3/uL (1.3-4.4); LYMPH % 38.9 % (27.0-41.0); MEAN CELL VOLUME 88.6 fl (81.0-99.0); MEAN CORPUSCULAR HGB 28.5 pg (27.0-31.0); MEAN CORPUSCULAR HGB CONC 32.1 g/dl (33.0-37.0); MEAN PLATELET VOLUME 10.1 fl (9.6-12.3); MONO # 0.5 10*3/uL (0.1-1.0); MONO % 8.1 % (3.0-9.0); NEUT # 2.8 10*3/uL (2.3-7.9); NEUT % 49.3 % (47.0-73.0); PLATELET COUNT AUTOMATED 199 10*3/uL (130-400); RED BLOOD COUNT 5.27 10*6/uL (4.10-5.10); RED CELL DISTRI WIDTH 19.7 % (0-14.5); WHITE BLOOD COUNT 5.7 10*3/uL (4.8-10.8)
[2018-11-16 06:33] LABS: ALBUMIN 3.3 gm/dl (3.1-4.5); CREATININE 1.09 mg/dL (0.55-1.02); FREE T4 1.46 ng/dl (0.76-1.46); PHOSPHOROUS 3.6 mg/dL (2.5-4.9); POTASSIUM 3.5 mmol/L (3.5-5.1); TOTAL PROTEIN 6.2 gm/dL (6.4-8.2)
[2018-11-16 06:39] LABS: THYROID STIM HORMONE (HS) 0.5 uIU/ml (0.358-4.75)
--- NOTE | 2018-11-16 08:45 | NUR ---
PHYSICAL THERAPY Patient evaluated on 4, full evaluation to follow. Continue with PT as per plan of care with fall, dementia, alarms and acute debility precautions. May require SNF versus [facility] with PT. PAtient is high complexity via chart review, tests and evaluation: 70801. Thank you for this referral. Cleopatra Quinones,PT
--- NOTE | 2018-11-16 09:31 | NUR ---
Occupational Therapy evaluation completed on the 4th floor with full eval to follow. Precautions: IV site, alarms, fall risk, Mod Ax2. Moderate complexity level 56543. Recommend return to [facility] with OT to evaluate. Work on sitting balance, functional mobility and functional strength. Thank you for this referral, Ammy Ramirez OTR/L
[2018-11-16 12:00] VITALS: BP 143/85
[2018-11-16 16:00] VITALS: BP 149/69
[2018-11-16 20:00] VITALS: BP 144/83
--- NOTE | 2018-11-16 21:35 | NUR ---
PT MEDICATED WITH PO DULCOLAX FOR C/O CONSTIPATION. PATIENT IS CONFUSED, BUT CLAIMS THAT SHE HAS NOT HAD A BM FOR "A FEW DAYS." ALSO STATES SHE IS HAVING SOME ABDOMINAL CRAMPING. WILL MONITOR EFFECTIVENESS. PT PULLED UP IN BED & REPOSITIONED FOR COMFORT. BED LEFT LOCKED IN LOW POSITION, BED ALARM INTACT, SIDE RAILS UP X3, CALL LIGHT IN REACH.
--- NOTE | 2018-11-16 22:10 | NUR ---
PATIENT REMAINS PLEASANT, BUT IS AGITATED & RESTLESS. PATIENT CONTINUES TO PULL OFF PLANT CONTROL OPERATOR LEADS & GOWN. PT ALSO SPILLED CHOCOLATE ENSURE & WATER PITCHER ON FLOOR. PO ATIVAN ADMINISTERED PER PRN ORDER FOR INCREASED AGITATION. WILL MONITOR EFFECTIVENESS. PATIENT CLEANED UP, NEW LINENS/GOWN PROVIDED, AND REPOSITIONED IN BED FOR COMFORT. BED LEFT LOCKED IN LOW POSITION, SIDE RAILS UP X3, BED ALARM INTACT, CALL LIGHT IN REACH. WILL MONITOR.
--- NOTE | 2018-11-16 23:47 | NUR ---
EARLIER MEDICATION APPEARS EFFECTIVE. PT ASLEEP IN BED, EASILY AROUSABLE. NO S/S OF DISTRESS NOTED. WILL MONITOR. CALL LIGHT IN REACH.
[2018-11-17] VITALS: BP 130/86
--- NOTE | 2018-11-17 04:24 | NUR ---
PT ASLEEP IN BED. RESPIRATIONS EASY. NO S/S OF DISTRESS NOTED. WILL MONITOR. CALL LIGHT LEFT IN REACH.
[2018-11-17 06:51] LABS: BASO # 0.1 10*3/uL (0.0-0.1); EOS # 0.2 10*3/uL (0.0-0.4); HEMOGLOBIN 14.6 g/dl (12.0-16.0); LYMPH # 1.8 10*3/uL (1.3-4.4); LYMPH % 37.7 % (27.0-41.0); MEAN CELL VOLUME 89.1 fl (81.0-99.0); MEAN CORPUSCULAR HGB 28.9 pg (27.0-31.0); MEAN CORPUSCULAR HGB CONC 32.4 g/dl (33.0-37.0); MEAN PLATELET VOLUME 9.7 fl (9.6-12.3); MONO # 0.5 10*3/uL (0.1-1.0); MONO % 9.6 % (3.0-9.0); NEUT # 2.3 10*3/uL (2.3-7.9); NEUT % 47.3 % (47.0-73.0); PLATELET COUNT AUTOMATED 175 10*3/uL (130-400); RED BLOOD COUNT 5.05 10*6/uL (4.10-5.10); RED CELL DISTRI WIDTH 19.3 % (0-14.5); WHITE BLOOD COUNT 4.8 10*3/uL (4.8-10.8)
[2018-11-17 07:16] LABS: BUN 13 mg/dl (7-24); CHLORIDE 112 mmol/L (98-107); CREATININE 0.96 mg/dL (0.55-1.02); POTASSIUM 3.7 mmol/L (3.5-5.1); SODIUM 146 mmol/L (136-145)
--- NOTE | 2018-11-17 07:30 | NUR ---
PHYSICAL THERAPY Patient seen this am 1;1 for therapy visit and was supine in bed upon therapist arrival. Patient was pleasant this morning with several bouts of increased confusion, and needed v/c to focus on task. Patient transfers supine to sit EOB with MIN A, taking a few minutes EOB sit to collect herself. Patient transfers sit to stand Min A and ambulates with use of wh walker, Min A, 25' x 2 to bathroom, completing toilet transfer, CGA. Patient has increased difficulty navigating walker in tight bathroom spaces and returned MARKETING PERFORMANCE ANALYST/CGA to supine in bed demonstrating improved stride versus use of wh walker. Patient remained in bed with call light, tray table, telephone and bed alarm for safety. Will continue per POC as tolerated, total treatment time 16 minutes. Hitesh Krause, MACHINE SORTER in bed
--- NOTE | 2018-11-17 07:48 | NUR ---
OT NOTE Pt was seen this A.M. 1:1 for 18 minute OT session. Upon arrival pt was supine in bed. Pt identified by name and and had no complaints at this time. Pt presented to therapy with increased confusion. Pt transferred supine to sit EOB with Bhavik for assist with UB. While sitting EOB challenged pt's dynamic sitting balance needed for increased I and enhanced safety. Pt was able to maintain F- sitting balance. Sit to stand completed from bed level with Bhavik and use of w/w for UE support. Functional mobility then completed into the bathroom with Bhavik and use of w/w. There she transferred on/off standard commode with Bhavik due to poor safety alignment with commode with confusion. Clothing management completed with modA and toilet hygiene completed with Bhavik. Pt then stood sink side while washing her hands with modA. Pt had multiple LOB both backwards and to the L that required modA to correct. Pt returned to the EOB where she transferred sit to supine with Bhavik. There she was left with call light in hand, tray table in place, and bed alarm activated for safety. Continue with rec D/C plan to [facility]. Yumiko Barker, [place]/Louie
[2018-11-17 08:30] VITALS: BP 128/70
--- NOTE | 2018-11-17 08:30 | NUR ---
AM MEDICATION TAKEN WITH EASE IN APPLESAUCE AT THIS TIME. PT PLEASANT AND COOPERATIVE WITH CARE. BREAKFAST SET UP FOR PT AT THIS TIME. PATIENT ATTENDANT NOTIFIED TO HELP PT WITH HER BREAKFAST.
--- NOTE | 2018-11-17 09:00 | NUR ---
Booth Usher in to talk to patient. Patient states lives at [facility] with . There are no steps in the home. Physician: jordana gramajo Pharmacy: per [facility] Home health services: none Patient's level of ADLs: MINIMAL ASSIST Patient has working utilities: all working DME: wheelchair Follow-up physician's appointment after d/c: will follow up per [facility] Does patient want to access PORTAL?: no Discharge plan patient is a resident of [facility], case management will contact [facility] to see if patient is able to return when medically stable. VASILE ALVARADO
--- NOTE | 2018-11-17 10:56 | NUR ---
case management contacted [facility], spoke to Shelbi. Inquired whether patient is able to return to the memory unit upon discharge, Shelbi stated she had to discuss this with her boss and also talk to the family regarding this patient, asked Shelbi if they were not readmitting patient to the memory unit and Shelbi stated she would have to call case management back after she spoke with her boss and patient's family
[2018-11-17 12:00] VITALS: BP 127/81
--- NOTE | 2018-11-17 12:00 | NUR ---
PT LYING IN BED AT THIS TIME. ALERT WITH CONFUSION. PLEASANT AND COOPERATIVE WITH STAFF. PT DENIES NEEDING ANYTHING AT THIS TIME. HOB ELEVATED FOR PT TO EAT LUNCH. WILL CONTINUE TO MONITOR PT. ALL SAFETY MEASURES IN PLACE. CALL LIGHT IN REACH.
--- NOTE | 2018-11-17 12:38 | NUR ---
Nutritional Support Services Note: Pt was unaware she was in the hospital. I stated she was and she expressed that she had no idea. She was extremely confused during our interview and unable to answer most questions. She's unable to comprehend renal diet education at this time. No nutrition intervention needed. Paul Garza [employer] CPD Student
--- NOTE | 2018-11-17 12:53 | NUR ---
case management received a call from patient's daughter Yisel Lopez, Yisel stated she has been inquiring about taking her mom to a short term custodial with a transition into nursing home care. Yisel stated she has talked with some facilities, but has a few more she would like to explore before she makes a decision on which one she wants her mom to go to. Yisel stated she would look at more facilities over the weekend and contact case management on Tuesday with her decision
[2018-11-17 16:00] VITALS: BP 168/80
--- NOTE | 2018-11-17 17:15 | NUR ---
PT APPEARS MORE ANXIOUS AND AGITATED AT THIS TIME. PT ATTEMPTING TO GET OUT OF BED. PT REORIENTED MANY TIMES. PT THROWS WATER PITCHER AT PATIENT ATTENDANT. PT YELLING AT STAFF. WILL MEDICATE PT AT THIS TIME. PT SAFETY MEASURES IN PLACE. CALL LIGHT IN REACH.
--- NOTE | 2018-11-17 17:16 | NUR ---
ATTEMPTING TO GIVE PT PO 0.5 MG ATIVAN AT THIS TIME. PT REFUSES, ATTEMPTS X3 MADE, INEFFECTIVE. WILL CONTINUE TO MONITOR PT. WILL WASTE MEDICATION WITH ANOTHER. RN. ALL SAFETY MEASURES IN PLACE FOR PT. CALL LIGHT IN REACH.
--- NOTE | 2018-11-17 17:30 | NUR ---
PT CONTINUES TO TRY TO GET OUT OF BED. MULTIPLE STAFF ATTEMPT TO RE ORIENT PT. WILL NOTIFY PHYSICIAN OF PT AGITATION AND ANXIETY.
--- NOTE | 2018-11-17 17:45 | NUR ---
CALLED FOR AGITATION, BEING PHYSICAL TOWARD STAFF, HITTING, THROWING THINGS, SPITTING. ORDER FOR SOMDON GIVEN. SEE MAR.
--- NOTE | 2018-11-17 18:16 | NUR ---
LAVERNE EFFECTIVE, PT MORE PLEASANT WITH STAFF AT THIS TIME AND ALLOWING HANDS ON CARE WITH EASE. BRIEF CHANGED WITHOUT ISSUES. CALL LIGHT IN REACH. BED ALARM ON. WILL CONTINUE TO MONITOR.
--- NOTE | 2018-11-17 18:30 | NUR ---
PT BREIF CHANGED AND PT FED A FEW BITES OF HER DINNER. PT PLEASANT AND COOPERATIVE. PT STATES THAT SHE DOES NOT WANT ANY MORE OF HER DINNER AT THIS TIME. WILL KEEP HER DINNER AT BEDSIDE TO ATTEMPT TO FEED HER MORE. ALL SAFETY MEASURES IN PLACE. CALL LIGHT IN REACH.
--- NOTE | 2018-11-17 19:25 | NUR ---
UP TO BEDSIDE COMMODE WITH 2 ASSISTANCE AND THEN BACK TO BED.
--- NOTE | 2018-11-17 19:40 | NUR ---
DAUGHTER WAS HERE AND NOTIFIED OF PT. CONDITION EARLIER AND THE NEED TO GIVEN PATIENT LAVERNE STATED "YES SHE CAN GET COMBATIVE". DAUGHTER SAID SHE WANTED "ATIVAN GIVEN EVERY 8 HOURS BECAUSE SHE CAN GET LIKE THAT" AND IT TOOK HER A LONG TIME TO GET THEM TO EVEN GIVE IT TO HER.
[2018-11-17 20:00] VITALS: BP 138/68
--- NOTE | 2018-11-17 22:20 | NUR ---
Becoming a little restless, per family earlier request to give ativan,this was given to help patient sleep.
--- NOTE | 2018-11-17 23:20 | NUR ---
Ativan effective, pt. resting more comfortable.
[2018-11-18] VITALS: BP 136/83
--- NOTE | 2018-11-18 01:49 | NUR ---
24 HR chart check completed.
[2018-11-18 06:31] LABS: BUN 13 mg/dl (7-24); CHLORIDE 111 mmol/L (98-107); CREATININE 1.01 mg/dL (0.55-1.02); POTASSIUM 3.8 mmol/L (3.5-5.1); SODIUM 145 mmol/L (136-145)
[2018-11-18 06:45] LABS: DIGOXIN 1.18 ng/ml (0.8-2.0)
--- NOTE | 2018-11-18 07:45 | NUR ---
PT HAS S/S OF ANXIETY/AGITATION. PT IS PULLING AT BREATHING TREATMENT AND APPEARS UPSET. LORAZEPAM 0.5 MG TABLET GIVEN AT THIS TIME. WILL MONITOR FOR EFFECTIVENESS. ALL SAFETY MEASURES IN PLACE. CALL LIGHT IN REACH.
--- NOTE | 2018-11-18 08:11 | NUR ---
PT RESTING IN BED AT THIS TIME, LOOKING AT A MAGAZINE. NO S/S OF DISTRESS NOTED. ALL SAFETY MEASURES IN PLACE. ENCOURAGED USE OF CALL LIGHT. WILL CONTINUE TO MONITOR. CALL LIGHT IN REACH.
[2018-11-18 09:08] VITALS: BP 148/80
--- NOTE | 2018-11-18 09:47 | NUR ---
[facility] NURSING STUDENTS ARE ASSISTING PATIENT WITH BREAKFAST AT THIS TIME. PT ALERT AND PLEASANT/COOPERATIVE WITH STAFF. WILL MONITOR PT INTAKE OF FOOD AND FLUIDS.
--- NOTE | 2018-11-18 10:46 | NUR ---
NOTIFIED DR LIANG THAT PT IS BECOMING MORE AGITATED/ANXIOUS AT THIS TIME. PHYSICIAN STATES THAT SHE WILL PUT AN ORDER IN.
--- NOTE | 2018-11-18 11:10 | NUR ---
0.5 MG PO ATIVAN GIVEN AT THIS TIME. WILL MONITOR FOR EFFECTIVENESS. PT SITTING UP IN BED, TALKING. [facility] NURSING STUDENTS AT BEDSIDE. CALL LIGHT IN REACH.
--- NOTE | 2018-11-18 11:44 | NUR ---
PT RESTING IN BED AT THIS TIME. RESPIRATIONS EASY AND UNLABORED. NO S/S OF DISTRESS NOTED. ALL NEEDS MET, ALL SAFETY MEASURES IN PLACE. CALL LIGHT IN REACH.
[2018-11-18 12:00] VITALS: BP 154/85
--- NOTE | 2018-11-18 15:00 | NUR ---
[facility] NURSING STUDENTS SITTING WITH PT AT THIS TIME. PT ALERT AND PLEASANT WITH NO S/S OF DISTRESS. RESPIRATIONS EASY AND UNLABORED ON ROOM AIR. WILL CONTINUE TO MONITOR. CALL LIGHT IN REACH.
--- NOTE | 2018-11-18 18:00 | NUR ---
PT DAUGHTER SITTING IN ROOM WITH PT AT THIS TIME, FEEDING PT DINNER. PT ALERT AND PLEASANT AT THIS TIME. WILL CONTINUE TO MONITOR.
--- NOTE | 2018-11-18 18:25 | NUR ---
PT ATE ABOUT 70% OF DINNER, PER PT DAUGHTER. PT RESTING IN BED AT THIS TIME. ALL SAFETY MEASURES IN PLACE. CALL LIGHT IN REACH.
--- NOTE | 2018-11-18 19:50 | NUR ---
ASSUMED CARE FOR PT AT THIS TIME. SHE IS RESTING IN BED QUIETLY. DAUGHTER IS AT THE BEDSIDE. PT IS ALERT AND PLEASANTLY CONFUSED. SHE DENIES ANY NEEDS AT THIS TIME. SAFETY MEASURES INTACT, BED LOCKED AND IN THE LOWEST POSITION, CALL LIGHT IS WITHIN REACH. BED ALARM ON AND AUDIBLE. WILL CONTINUE TO MONITOR PT.
[2018-11-18 20:00] VITALS: BP 147/76
[2018-11-18 20:21] VITALS: BP 138/78
--- NOTE | 2018-11-18 20:22 | NUR ---
0.5 MG PO ATIVAN ADMINISTERED ORDERED FOR ANXIETY. PT'S DAUGHTER AT BEDSIDE AT THIS TIME WHICH HAS SEEMED TO HELP A LITTLE BIT. WILL MONITOR FOR EFFECTIVENESS OF MEDICATION.
--- NOTE | 2018-11-18 21:30 | NUR ---
ATIVAN SEEMINGLY EFFECTIVE. WILL CONTINUE TO MONITOR
[2018-11-19] VITALS: BP 138/72
--- NOTE | 2018-11-19 04:45 | NUR ---
PT ASLEEP IN BED AT THIS TIME. RESPIRATIONS EASY AND NONLABORED. THERE ARE NO OBVIOUS SIGNS/SYMPTOMS OF PAIN OR DISCOMFORT. SAFETY MEASURES IN PLACE. WILL CONTINUE TO MONITOR.
--- NOTE | 2018-11-19 05:34 | NUR ---
PRN ORDER FOR ATIVAN ADMINISTERED FOR RESTLESSNESS & AGITATION. WILL MONITOR FOR EFFECTIVENESS OF MEDICATION.
--- NOTE | 2018-11-19 09:00 | NUR ---
PT ASSISTED WITH BREAKFAST. PT ATE ABOUT 50% OF MEAL, REQUIRING CUES AND ASSISTANCE OFTEN. HOB ELEVATED. NO S/S OF DISTRESS NOTED. ALL SAFETY MEASURES IN PLACE. CALL LIGHT IN REACH.
--- NOTE | 2018-11-19 11:09 | NUR ---
PT SITTING UP IN BED AT THIS. PLEASANT AND COOPERATIVE WITH STAFF. ALL NEEDS MET. ALL SAFETY MEASURES IN PLACE. CALL LIGHT IN REACH.
[2018-11-19 12:00] VITALS: BP 138/89
--- NOTE | 2018-11-19 14:00 | NUR ---
PT RESTING IN BED AT THIS TIME. RESPIRATIONS EASY AND UNLABORED. NO S/S OF DISTRESS. SAFETY MEASURES IN PLACE. CALL LIGHT IN REACH.
[2018-11-19 16:00] VITALS: BP 164/80
[2018-11-19 17:45] VITALS: BP 156/80
--- NOTE | 2018-11-19 18:26 | NUR ---
PT DAUGHTER IN ROOM FEEDING PT HER DINNER. PT DAUGHTER REQUESTS DIET BE CHANGED FROM SOFT TO PUREED. PT DAUGHTER ALSO ASKS IF PATIENT IS ABLE TO HAVE ENSURE WITH EACH MEAL. PHYSICIAN NOTIFIED AND NEW ORDERS RECEIVED FOR PUREED DIET AND ENSURE WITH EACH MEAL. PT DAUGHTER AWARE.
--- NOTE | 2018-11-19 19:10 | NUR ---
ASSUMED CARE FOR PT AT THIS TIME. PT IS SLEEPING IN BED WITH NO OBVIOUS SIGNS/SYMPTOMS OF PAIN OR DISCOMFORT. DAUGHTER IS AT THE BEDSIDE. RESPIRATIONS EASY AND NONLABORED. BED LOCKED AND IN THE LOWEST POSITION, CALL LIGHT WITHIN REACH, BED ALARM ON. WILL CONTINUE TO MONITOR.
[2018-11-19 20:00] VITALS: BP 139/86
--- NOTE | 2018-11-19 20:20 | NUR ---
PT NOTEABLEY RESTLESS AT THIS TIME. SHE STATES SHE IS TRYING TO LEAVE TO GO TO [facility]. DAUGHTER LEFT BEDSIDE A SHORT TIME AGO. PT REORIENTED TO TIME AND SITUATION. PRN ORDER FOR 0.5 MG PO ATIVAN GIVEN WITH PM MEDICATIONS. WILL MONITOR PT.
[2018-11-20] VITALS: BP 140/90
--- NOTE | 2018-11-20 03:50 | NUR ---
PT RESTING COMFORTABLY IN BED AT THIS TIME. RESPIRATIONS ARE EASY AND NONLABORED. NO OBVIOUS SIGNS/SYMPTOMS OF PAIN OR DISCOMFORT. BED LOCKED AND IN THE LOWEST POSITION, CALL LIGHT WITHIN REACH. WILL CONTINUE TO MONITOR PT.
--- NOTE | 2018-11-20 05:44 | NUR ---
PT NOTEABLY AGITATED & RESTLESS AT THIS TIME. PT ATTEMTPING TO CLIMB OUT OF BED. SHE STATES OVER AND OVER "WE NEED TO GET OUT OF HERE" AND STATES SHE NEEDS TO "GET TO THE OTHER SIDE". PT ALSO NOTED TO BE TEARFUL, POINTING AT THE WALL AND MUMBLING DISORGANIZED THOUGHTS. SHE WAS REORIENTED TO PLACE AND SITUATION, CALL DONT FALL EDUCATION REINFORCED. CALL LIGHT WITHIN REACH. BED LOCKED AND IN THE LOWEST POSITION, BED ALARM ON AND AUDIBLE. WILL MONITOR PT CLOSELY.
[2018-11-20 08:00] VITALS: BP 132/90
--- NOTE | 2018-11-20 08:20 | NUR ---
OT NOTE Pt was seen this A.M. 1:1 for 15 minute OT session. Upon arrival pt was supine in bed. Pt identified by name and on wristband due to increased confusion and poor attention to task. Throughout session pt was talking subject to subject that were not related to therapy or her hospital stay and was pointing and talking of unseen objects in the room. Pt transferred supine to sit EOB with maxA x 2 due to being unable to follow commands. While sitting EOB challenged pt's dynamic sitting balance needed for increased I and enhanced safety. While weight shifting and reaching over all planes pt was able to maintain F+ sitting balance. Attempted to complete other tasks and pt was unable to follow any commands and was unable to be redirected to task. Pt transferred back into bed sit to supine with maxA X 2. There she was left supine in bed with call light in hand, tray table in place, and bed alarm activated for safety. Continue with rec D[facility]. LONDON Hill/Louie
--- NOTE | 2018-11-20 08:49 | NUR ---
PHYSICAL THERAPY Patient was identified by name and . Patient was confused ,so she could not verbally give informed consent for treatment. Patient was supine in bed with head of bed elevated upon this ACOUSTIC INTELLIGENCE SPECIALIST arriving in the patient's room. Patient performed supine to sitting at EOB transfer with MAX A X 2. Patient would not follow verbal commands to transfer supine to sitting at EOB. Patient performed sitting at EOB unassisted with SBA for 5 minutes total. Patient would not transfer sit to stand with MAX VERBAL CUES and encouragement. Patient demonstrated extreme confusion and unable to follow commands. Patient did a few kick outs ,but was unable to follow commands beyond about 10 kick outs. Patient transferred back to supine in bed with MAX A X 2. Patient unable to follow commands to assist with transfer. Patient was 1:1 with this ACOUSTIC INTELLIGENCE SPECIALIST for 18 minutes total. ELAINE BANDA ACOUSTIC INTELLIGENCE SPECIALIST
--- NOTE | 2018-11-20 11:16 | NUR ---
CALLED CONSULT TO DR. CHAN PER DR. WALSH. FOR MEDICATION ADJUSMENTS.
--- NOTE | 2018-11-20 11:32 | NUR ---
Daughter called corporate meeting planner and case consultant into patients room. Discussed snf placement. Daughter stating she would like referrals faxed to the [facility], [facility]. [facility] and [facility]. Faxed referrals waiting for review.
[2018-11-20 12:00] VITALS: BP 147/94
--- NOTE | 2018-11-20 12:26 | NUR ---
PASRR submitted to prepare for pt discharge needs.
--- NOTE | 2018-11-20 13:05 | NUR ---
[facility] stating they are unable to accept this patient as they no longer have a unit for alzheimers/dementia patients. Still waiting on other facilities to review.
--- NOTE | 2018-11-20 14:04 | NUR ---
[facility] stating they do not have a memory unit and are unable to accept this patient at this time. Suggested faxed to [facility]
[2018-11-20 16:00] VITALS: BP 140/76
[2018-11-20 20:00] VITALS: BP 148/88; BP 156/96
--- NOTE | 2018-11-20 23:10 | NUR ---
24 HR chart check completed.
[2018-11-21] VITALS: BP 150/90; BP 154/97
--- NOTE | 2018-11-21 04:36 | NUR ---
PATIENT SLEEPING SOUNDLY. BREATHING IS EASY AND REGULAR WITHOUT DISTRESS. CALL LIGHT WITHIN REACH, WILL CAMILLE
[2018-11-21 06:55] LABS: BASO % 0.7 % (0.0-1.0); EOS # 0.2 10*3/uL (0.0-0.4); EOS % 5.5 % (1.0-4.0); HEMATOCRIT 46.1 % (37.0-47.0); HEMOGLOBIN 14.9 g/dl (12.0-16.0); LYMPH # 1.5 10*3/uL (1.3-4.4); LYMPH % 35.2 % (27.0-41.0); MEAN CORPUSCULAR HGB 28.8 pg (27.0-31.0); MEAN CORPUSCULAR HGB CONC 32.3 g/dl (33.0-37.0); MEAN PLATELET VOLUME 9.5 fl (9.6-12.3); MONO # 0.5 10*3/uL (0.1-1.0); MONO % 10.5 % (3.0-9.0); NEUT # 2.1 10*3/uL (2.3-7.9); NEUT % 47.9 % (47.0-73.0); PLATELET COUNT AUTOMATED 179 10*3/uL (130-400); RED BLOOD COUNT 5.18 10*6/uL (4.10-5.10); RED CELL DISTRI WIDTH 18.6 % (0-14.5); WHITE BLOOD COUNT 4.4 10*3/uL (4.8-10.8)
[2018-11-21 07:50] LABS: CREATININE 1.03 mg/dL (0.55-1.02)
[2018-11-21 08:00] VITALS: BP 148/88
--- NOTE | 2018-11-21 09:18 | NUR ---
Pt was seen for 15 minutes in OT begiining with supine to sit to EOB with Mod A. Sit to stand required Min A x 2. Pt tolerated approx 1 & 1/2 minutes before fatiguing. Max A with grooming while sitting EOB. Call light within reach. Continue with POC. Aislinn AYALA/Louie
--- NOTE | 2018-11-21 10:51 | NUR ---
Contacted Marce at [facility] regarding referral. She stated she has been busy and unable to review yet. She stated she will be reviewing this referral shortly and will call us back with a decision.
--- NOTE | 2018-11-21 11:06 | NUR ---
PHYSICAL THERAPY Patient very confused as usual. Patient identified by name and on wrist band. Patient was supine in bed with head of bed elevated upon this CHHA arriving in the patient's room. Bed alarm was on. Patient transferred supine to sitting at EOB with MAX A X 2. Patient unable to follow verbal commands. Patient sit at EOB for 5 minutes total with CGA to MIN A X 1 at times to prevent retrograde motion. Patient sit to stand from EOB with MIN A X 2. Patient's hands had to be placed on walker because patient was unable to follow commands to place one hand on walker and one hand pushing off of bed. Patient standing tolerance at Wh Walker X 2 with CGA A X 2 for 1 minute 30 seconds with no LOB. Patient does not follow commands for upright posture. Patient does not want to ambulate. Patient transferred back to supine in bed with MAX A X 2. Patient was left in supine in bed with call light within reach, bed alarm activated, and bed rails up. Patient head of bed elevated. Patient was 1:1 with this CHHA for 19 minutes total. ELAINE BANDA CHHA Patient
--- NOTE | 2018-11-21 11:34 | NUR ---
CALLED [facility]- RENOTIFIED OF CONSULT.
--- NOTE | 2018-11-21 11:45 | NUR ---
turnaround planner working with patient and daughter on discharge placement arrangements, case management will follow
[2018-11-21 12:00] VITALS: BP 132/90
--- NOTE | 2018-11-21 12:00 | NUR ---
PT AGITATED AND GRABBING STAFF, RE ADJUSTED FOR COMFORT. REORIENTING PT UNSUCCESSFUL AT THIS TIME. BED ALARM IN USE. WILL MONITOR
--- NOTE | 2018-11-21 14:47 | NUR ---
Venkata leonard [facility] called stating patient has been accepted into [facility] in [place]. She will contact patients daughter and discuss details. PASS/RR is completed, 3 night stay is complete. [facility] can accept this patient tomorrow 11/22/18 if medically stable for discharge.
[2018-11-21 16:00] VITALS: BP 152/84
[2018-11-21 20:00] VITALS: BP 169/91
--- NOTE | 2018-11-21 21:43 | NUR ---
PATIENT TOOK 2200 MEDICATIONS CRUSHED IN APPLESAUCE WITHOUT ISSUE. ASSISTED TO BEDSIDE COMMODE AND BACK TO BED. RESTING COMFORTABLY AT THIS TIME. BED IN LOW POSITION, WHEELS LOCKED, BED ALARM ON, CALL LIGHT IN REACH.
[2018-11-22] VITALS: BP 150/104
[2018-11-22 02:00] VITALS: BP 152/100
--- NOTE | 2018-11-22 02:00 | NUR ---
NOTIFIED DR MEZA OF PATIENTS MANUAL BP 152/100. STATED HE WOULD TAKE A LOOK AND PUT SOMETHING IN.
--- NOTE | 2018-11-22 03:56 | NUR ---
PATIENT TOOK 1X DOSE PO HYDRALAZINE ORDERED CRUSHED IN APPLESAUCE WITHOUT ISSUE.
[2018-11-22 06:00] VITALS: BP 142/98
[2018-11-22 08:00] VITALS: BP 147/88
[2018-11-22] MEDS ORDERED: METOPROLOL TART50 M1 PO (08:20)
[2018-11-22] MEDS ORDERED: RISPERIDONE1 MG PO (08:20)
[2018-11-22] MEDS ORDERED: ATIVAN0.5 MG PO (08:20)
--- NOTE | 2018-11-22 08:58 | NUR ---
Patient is discharged to [facility] in [facility]. Contacted daughter fadi who stated she is on her way and will be here around 11 am to transport the patient. NH, nursing and correction warden notified.
--- NOTE | 2018-11-22 09:08 | NUR ---
PHYSICAL THERAPY PT SUPINE IN BED UPON ARRIVAL. PT IDENRTIFED BY NAME VERBAL AND ON NAME BAND. PT AGREED TO ALL PT TREATMENT THIS VISIT. PT PERFORMED SUPINE TO SIT WITH MAX A X 1 WITH VC'S TO HELP WITH TASKS. PT PERFORMED SIT TO STAND FROM EOB WITH MOD A X 2 WITH VC'S TO KEEP PTS LEGS STRONG. PT PERFORMED STANDING PIVIOT TRANSFER TO [facility] WITH MOD A X 2 WITH VC'S FOR SIDE STEPPING AND BW STEPPING. PT PERFORMED STS TO AND FROM BSC WITH MOD A X 1 WITH VC'S FOR SAFETY AND TO HELP. PT PERFORMED PIVOIT TRANSFER FROM BSC TO EOB WITH MAX VC'S FOR PIVIOT, THEN TO SIDE STEP TOWARD HEAD OF BED AND THEN TO STEP BW TO EOB. PT PERFORMED STS TO EOB WITH MOD A X1. PT PERFOMED SIT TO SUPINE IN BED WITH MAX A X 2 AND SUPINE TO MOV HEAD OF BED WITH MAX A X 2. PT HAS VERY LITTLE TO NO CARRY OVER WITH ANY VC'S AND IS UNSAFETY WITH ALL TASK. PT SEEN 1:1 FOR 18 MIN. JC MORA PTA
--- NOTE | 2018-11-22 12:25 | NUR ---
Discharge instructions reviewed with patient/family. Patient receptive and verbalizes understanding. Follow-up care arranged. Written instructions given to patient/family. UBALDO PALOMINO
--- NOTE | 2018-11-22 12:45 | NUR ---
REPORT CALLED TO JUJU VARGASQUINN
--- NOTE | 2018-11-22 13:54 | NUR ---
PHYSICAL THERAPY CO-SIGN I approve of the Phyical Therapy notes written above. HAILEY ALEMAN PT
--- NOTE | 2018-11-23 07:53 | NUR ---
OCCUPATIONAL THERAPY CO-SIGN I approve of the Occupational Therapy notes written above. MARTHA BARNES OTR/Louie
== END 2018-11-22 12:25 | disposition other institution (70) | DRG 70 ==
LOC: ED 20:44 → 4E 23:41 → EDHOLD 23:41 → 4E 11-16 00:03
PROVIDERS: Emergency Medicine Emergency Medical Services; Family Medicine; ADMIT Internal Medicine
DX: G93.41 Metabolic encephalopathy (principal); N17.0 Acute kidney failure with tubular necrosis; F02.81 Dementia in other diseases classified elsewhere, unspecified severity, with behavioral disturbance; I48.92 Unspecified atrial flutter; I13.0 Hypertensive heart and chronic kidney disease with heart failure and stage 1 through stage 4 chronic kidney disease, or unspecified chronic kidney disease; I50.42 Chronic combined systolic (congestive) and diastolic (congestive) heart failure; F33.9 Major depressive disorder, recurrent, unspecified; E86.0 Dehydration; N18.3 Chronic kidney disease, stage 3 (moderate); G30.9 Alzheimer's disease, unspecified; E87.8 Other disorders of electrolyte and fluid balance, not elsewhere classified; I49.5 Sick sinus syndrome; I48.2 Chronic atrial fibrillation; Z96.653 Presence of artificial knee joint, bilateral; F41.1 Generalized anxiety disorder; E03.2 Hypothyroidism due to medicaments and other exogenous substances; Z66 Do not resuscitate; Z51.5 Encounter for palliative care; Z95.0 Presence of cardiac pacemaker; Z88.6 Allergy status to analgesic agent; Z88.8 Allergy status to other drugs, medicaments and biological substances; Z90.710 Acquired absence of both cervix and uterus; Z83.6 Family history of other diseases of the respiratory system; Z81.1 Family history of alcohol abuse and dependence; Z82.49 Family history of ischemic heart disease and other diseases of the circulatory system